=== PATIENT | female | born 1975 | race African-American/Black ===

== ENCOUNTER 2017-03-15 00:41 | Emergency (ER) | payer MEDICAID ==
[~2017-03-15] VITALS: Ht 152.4 cm; Wt 97.0 kg
[2017-03-15 01:45] VITALS: BP 125/75
== END 2017-03-15 03:00 | disposition left against medical advice (07) ==
LOC: ER 00:44
DX: Z53.21 Procedure and treatment not carried out due to patient leaving prior to being seen by health care provider (principal); R00.0 Tachycardia, unspecified; J45.909 Unspecified asthma, uncomplicated; I50.9 Heart failure, unspecified; Z98.84 Bariatric surgery status
CPT/HCPCS: Z7610 ×3

== ENCOUNTER 2017-06-22 15:56 | Inpatient (IN) | payer MEDICAID ==
[~2017-06-22] VITALS: Ht 154.9 cm; Wt 78.9 kg
[2017-06-22] MEDS ORDERED: SODIUM CHLORIDE 0.9% 1,000 ML IV ONE (18:57)
[2017-06-22 19:19] LABS: BASOPHILS % 1.4 % (0.0-2.0); EOSINOPHILS % 0.3 % (0.0-5.0); HEMATOCRIT. 34.4 % (36.0-48.0); HEMOGLOBIN. 11.4 g/dL (12.0-16.0); LYMPHOCYTES % 24.1 % (20.0-50.0); MEAN CORPUSCULAR HEMOGLOBIN 25.4 pg (28.0-32.0); MEAN CORPUSCULAR VOLUME 76.6 fL (81.0-99.0); MEAN PLATELET VOLUME 8.7 fl (7.4-10.4); MONOCYTES % 13.2 % (2.0-8.0); PLATELET 146 x1000/uL (130-400); RED BLOOD CELL COUNT 4.49 mill/uL (4.2-5.4); RED CELL DISTRIBUTION WIDTH 19.5 % (11.6-14.6)
[2017-06-22 19:23] LABS: INR 1.2; PROTHROMBIN TIME 12.5 sec (9.4-11.6)
[2017-06-22 19:32] LABS: CHLORIDE 58 mEq/L (98-107)
[2017-06-22] MEDS ORDERED: POTASSIUM CHLORIDE 20MEQ TABLET SR PO ONE (19:45)
[2017-06-22] MEDS ORDERED: POTASSIUM CHLORIDE INJ 40 MEQ in DEXT 5% WATER 500 ML IV ONE (19:45)
[2017-06-22 19:48] LABS: CARBON DIOXIDE 50 mEq/L (21-32)
[2017-06-22] MEDS ORDERED: DOCU-138 PO (22:58)
[2017-06-22] MEDS ORDERED: FERR325T6 PO (22:58)
[2017-06-22] MEDS ORDERED: PANT40TA4 PO (22:58)
[2017-06-22] MEDS ORDERED: POTA10TA11 PO (22:58)
[2017-06-22] MEDS ORDERED: METO10TA94 PO (22:58)
[2017-06-22] MEDS ORDERED: FURO-151 PO (22:58)
[2017-06-22 23:00] VITALS: BP 113/74
[2017-06-22] MEDS ORDERED: MAGNESIUM/ALUMINUM HYDROXIDE/SIMETHICONE 30ML UDC PO PRN (23:00)
[2017-06-22] MEDS ORDERED: IPRATROPIUM/ALBUTEROL 0.5-3(2.5)MG/3ML NEB INH PRN (23:00)
[2017-06-22] MEDS ORDERED: ONDANSETRON HCL 4MG/2ML VIAL IV PRN (23:00)
[2017-06-22] MEDS ORDERED: ACETAMINOPHEN 325MG TABLET PO PRN (23:00)
[2017-06-22] MEDS ORDERED: CLONIDINE 0.1MG TABLET PO PRN (23:00)
[2017-06-22 23:50] VITALS: BP 103/72
[2017-06-23] VITALS (12 sets, daily range): BP systolic 76–103; BP diastolic 37–67
[2017-06-23] MEDS ORDERED: MAGNESIUM 2 G PREMIX 50 ML IV SCH (01:00)
[2017-06-23] MEDS: SODIUM CHLORIDE 0.9% 1,000 ML IV SCH ×2 (01:25→14:43)
[2017-06-23] MEDS: ZOLPIDEM TARTRATE 5MG TABLET PO PRN (01:33)
[2017-06-23] MEDS ORDERED: PNEUMOCOCCAL 23-VAL P-SAC VAC 0.5 ML IM ONE (06:00)
[2017-06-23 06:38] LABS: BASOPHILS % 0.5 % (0.0-2.0); EOSINOPHILS % 0.6 % (0.0-5.0); HEMATOCRIT. 29.1 % (36.0-48.0); HEMOGLOBIN. 9.8 g/dL (12.0-16.0); LYMPHOCYTES % 30.8 % (20.0-50.0); MEAN CORPUSCULAR HEMOGLOBIN 25.8 pg (28.0-32.0); MEAN CORPUSCULAR VOLUME 76.7 fL (81.0-99.0); MEAN PLATELET VOLUME 9.2 fl (7.4-10.4); MONOCYTES % 14.2 % (2.0-8.0); NEUTROPHILS % 53.9 % (40.0-76.0); PLATELET 132 x1000/uL (130-400); RED CELL DISTRIBUTION WIDTH 19.7 % (11.6-14.6)
[2017-06-23 08:12] LABS: CHLORIDE 65 mEq/L (98-107); CREATINE KINASE 69 IU/L (26-192); CREATINE KINASE MB FRACTION < 0.5 ng/mL (0.5-3.6); HDL CHOLESTEROL 54 mg/dL (40-59); LDL CHOLESTEROL 30 mg/dL (5-100); TROPONIN I < 0.02 ng/mL (0.00-0.04)
[2017-06-23 08:35] LABS: CARBON DIOXIDE 46 mEq/L (21-32)
[2017-06-23] MEDS: FOLIC ACID 1MG TABLET PO SCH (08:43)
[2017-06-23] MEDS: MULTIVITAMINS,THER W-MINERALS TABLET PO SCH (08:43)
[2017-06-23] MEDS: THIAMINE HCL 100MG TABLET PO SCH (08:44)
[2017-06-23] MEDS ORDERED: POTASSIUM CHLORIDE 20MEQ TABLET SR PO NR ×3 (09:00→18:30)
[2017-06-23] MEDS ORDERED: SPIRONOLACTONE 25MG TABLET PO SCH (10:15)
[2017-06-23] MEDS ORDERED: POTASSIUM CHLORIDE INJ 40 MEQ in DEXT 5% WATER 250 ML IV NR (11:00)
[2017-06-23 15:25] LABS: CREATINE KINASE 68 IU/L (26-192); CREATINE KINASE MB FRACTION < 0.5 ng/mL (0.5-3.6); TROPONIN I < 0.02 ng/mL (0.00-0.04)
[2017-06-23 15:38] LABS: T4 FREE 1.7 ng/dL (0.76-1.46)
[2017-06-23 16:54] LABS: AMMONIA 43 uMol/L (<32)
[2017-06-23 17:14] LABS: BG BASE EXCESS 19.6 mmol/L (-2.0-2.0); BG CARBOXYHEMOGLOBIN 1.2 % (0.5-1.5); BG FRACTION INSPIRED OXYGEN 21; BG HCO3 ACT 43.6 mmol/L (22.0-26.0); BG METHEMOGLOBIN 0.2 % (0.0-1.5); BG OXYGEN SATURATION 91.9 % (92.0-98.5); BG OXYHEMOGLOBIN 90.6 % (94.0-97.0); BG PCO2 46.7 mmHg (35.0-45.0); BG PH 7.588 (7.350-7.450); BG PO2 64.3 mmHg (75.0-100.0); BG SAMPLE SITE RIGHT BRACHIAL; BG VENT MODE ROOM AIR
[2017-06-23 17:50] LABS: CHLORIDE 73 mEq/L (98-107)
[2017-06-23] MEDS ORDERED: POTASSIUM CHLORIDE INJ 40 MEQ in SODIUM CHLORIDE 0.9% 1,000 ML IV SCH (18:00)
[2017-06-23 18:03] LABS: CARBON DIOXIDE 43 mEq/L (21-32)
[2017-06-23] MEDS: SODIUM CHL 0.9% + KCL 20MEQ/L 1,000 ML IV SCH (20:30)
[2017-06-23] MEDS ORDERED: POTASSIUM CHLORIDE 20MEQ TABLET SR PO SCH (21:00)
[2017-06-24] VITALS (12 sets, daily range): BP systolic 88–121; BP diastolic 55–79
[2017-06-24 00:40] LABS: CHLORIDE 78 mEq/L (98-107)
[2017-06-24 00:47] LABS: VITAMIN B12 SERUM 591 pg/mL (211-911)
[2017-06-24 00:58] LABS: FOLIC ACID (FOLATE) SERUM > 20.00 ng/mL (>5.38)
[2017-06-24 01:02] LABS: CARBON DIOXIDE 41 mEq/L (21-32)
[2017-06-24] MEDS ORDERED: POTASSIUM CHLORIDE 20MEQ TABLET SR PO SCH (02:08)
[2017-06-24] MEDS: ZOLPIDEM TARTRATE 5MG TABLET PO PRN (02:21)
[2017-06-24] MEDS: SODIUM CHL 0.9% + KCL 20MEQ/L 1,000 ML IV SCH ×2 (04:51→13:58)
[2017-06-24 06:16] LABS: BASOPHILS % 0.6 % (0.0-2.0); EOSINOPHILS % 0.9 % (0.0-5.0); HEMOGLOBIN. 9.2 g/dL (12.0-16.0); LYMPHOCYTES % 36.2 % (20.0-50.0); MEAN CORPUSCULAR HEMOGLOBIN 25.5 pg (28.0-32.0); MEAN CORPUSCULAR VOLUME 77.6 fL (81.0-99.0); MEAN PLATELET VOLUME 8.8 fl (7.4-10.4); MONOCYTES % 14.1 % (2.0-8.0); NEUTROPHILS % 48.2 % (40.0-76.0); PLATELET 139 x1000/uL (130-400); RED BLOOD CELL COUNT 3.61 mill/uL (4.2-5.4); RED CELL DISTRIBUTION WIDTH 19.9 % (11.6-14.6)
[2017-06-24 07:12] LABS: CHLORIDE 83 mEq/L (98-107); PHOSPHORUS 2.2 mg/dL (2.5-4.9)
[2017-06-24 07:44] LABS: CARBON DIOXIDE 40 mEq/L (21-32)
[2017-06-24] MEDS ORDERED: POTASSIUM CHLORIDE 20MEQ TABLET SR PO NR ×2 (08:45→14:00)
[2017-06-24] MEDS: FOLIC ACID 1MG TABLET PO SCH (08:47)
[2017-06-24] MEDS: THIAMINE HCL 100MG TABLET PO SCH (08:47)
[2017-06-24] MEDS: MULTIVITAMINS,THER W-MINERALS TABLET PO SCH (08:47)
[2017-06-24 09:26] LABS: GLUCOSE URINE NEGATIVE (NEGATIVE); KETONES URINE NEGATIVE (NEGATIVE); LEUKOCYTE ESTERASE URINE NEGATIVE (NEGATIVE); NITRITE URINE NEGATIVE (NEGATIVE); OCCULT BLOOD URINE 3+ (NEGATIVE); PH URINE 7.5 (4.5-8.0); PROTEIN URINE NEGATIVE (NEGATIVE); SPECIFIC GRAVITY URINE 1.006 (1.005-1.030)
[2017-06-24 09:57] LABS: CLARITY URINE SL HAZY (CLEAR); COLOR URINE YELLOW (YELLOW)
[2017-06-24 10:18] LABS: *AMPHETAMINES SCREEN URINE NEGATIVE (NEGATIVE); *BARBITURATES SCREEN URINE NEGATIVE (NEGATIVE); *BENZODIAZEPINES SCREEN URINE NEGATIVE (NEGATIVE); *COCAINE SCREEN URINE NEGATIVE (NEGATIVE); CANNABINOID URINE SCREEN NEGATIVE (NEGATIVE); METHADONE URINE SCREEN NEGATIVE (NEGATIVE); OPIATES URINE SCREEN NEGATIVE (NEGATIVE); PHENCYCLIDINE URINE SCREEN NEGATIVE (NEGATIVE)
[2017-06-24 10:30] LABS: CHLORIDE URINE RANDOM < 10 mEq/L; SODIUM URINE RANDOM 19 mEq/L
[2017-06-24] MEDS ORDERED: POTASSIUM PHOS,M-BASIC-D-BASIC 15 MMOL in DEXT 5% WATER 245 ML IV NR (11:00)
[2017-06-24 13:13] LABS: CARBON DIOXIDE 39 mEq/L (21-32); CHLORIDE 87 mEq/L (98-107)
[2017-06-24 18:18] LABS: CARBON DIOXIDE 35 mEq/L (21-32); CHLORIDE 92 mEq/L (98-107)
[2017-06-24] MEDS: SODIUM CHLORIDE 0.9% 1,000 ML IV SCH (21:45)
[2017-06-25] VITALS (9 sets, daily range): BP systolic 85–111; BP diastolic 44–74
[2017-06-25] MEDS: ZOLPIDEM TARTRATE 5MG TABLET PO PRN (01:14)
[2017-06-25 07:54] LABS: CARBON DIOXIDE 33 mEq/L (21-32); CHLORIDE 97 mEq/L (98-107)
[2017-06-25] MEDS: THIAMINE HCL 100MG TABLET PO SCH (08:53)
[2017-06-25] MEDS: FOLIC ACID 1MG TABLET PO SCH (08:53)
[2017-06-25] MEDS: MULTIVITAMINS,THER W-MINERALS TABLET PO SCH (08:53)
[2017-06-25] MEDS: SODIUM CHLORIDE 0.9% 1,000 ML IV SCH (08:53)
[2017-06-25] MEDS ORDERED: POTASSIUM CHLORIDE 20MEQ TABLET SR PO NR ×3 (09:45→10:04)
[2017-06-25] MEDS ORDERED: FOLI-43 PO (11:40)
[2017-06-25] MEDS ORDERED: THIA100T72 PO (11:40)
== END 2017-06-25 13:52 | disposition home or self-care (01) | DRG 52 ==
LOC: ER 17:00 → 3WST 20:14 → ENRESERV 20:30
PROVIDERS: ADMIT Internal Medicine; ATTEND Internal Medicine
DX: G93.40 Encephalopathy, unspecified (principal); E43 Unspecified severe protein-calorie malnutrition; E87.3 Alkalosis; D61.818 Other pancytopenia; I95.9 Hypotension, unspecified; I11.0 Hypertensive heart disease with heart failure; I50.9 Heart failure, unspecified; E87.1 Hypo-osmolality and hyponatremia; E87.8 Other disorders of electrolyte and fluid balance, not elsewhere classified; R55 Syncope and collapse; T50.2X5A Adverse effect of carbonic-anhydrase inhibitors, benzothiadiazides and other diuretics, initial encounter; T50.1X5A Adverse effect of loop [high-ceiling] diuretics, initial encounter; E86.1 Hypovolemia; E83.42 Hypomagnesemia; K74.60 Unspecified cirrhosis of liver; E87.6 Hypokalemia; J45.909 Unspecified asthma, uncomplicated; W18.39XA Other fall on same level, initial encounter; Y93.89 Activity, other specified; Y92.89 Other specified places as the place of occurrence of the external cause; Y99.8 Other external cause status; Z82.49 Family history of ischemic heart disease and other diseases of the circulatory system; Z98.84 Bariatric surgery status; Z72.89 Other problems related to lifestyle; Z68.32 Body mass index [BMI] 32.0-32.9, adult
CPT/HCPCS: 36415; 36600; 70551; 71010; 71020; 80048; 80053; 80061; 80305; 81001; 82088; 82140; 82340; 82375; 82436; 82533; 82550; 82553; 82570; 82607; 82746; 82805; 83036; 83735; 83930; 83935; 84100; 84133; 84244; 84300; 84439; 84443; 84481; 84484; 85025; 85610; 87040; 87086; 90732; 93005; 93306; 93970; 96374; 99285; G0482; J3475; J3480; J3490; J7030; J7060

== ENCOUNTER 2018-03-06 08:56 | Inpatient (IN) | payer MEDICAID ==
[~2018-03-06] VITALS: Ht 152.4 cm; Wt 101.2 kg
[~2018-03-06 08:56] MED LIST: DOCU-138 PO; FERR325T6 PO; FOLI-43 PO; PANT40TA4 PO; POTA10TA11 PO; THIA100T72 PO
[2018-03-06 10:37] LABS: INR 2.1; PARTIAL THROMBOPLASTIN TIME 48.9 sec (23.4-31.0); PROTHROMBIN TIME 22.1 sec (9.4-11.6)
[2018-03-06 10:42] LABS: BASOPHILS % 1.2 % (0.0-2.0); EOSINOPHILS % 0.3 % (0.0-5.0); HEMATOCRIT. 25.8 % (36.0-48.0); HEMOGLOBIN. 8.6 g/dL (12.0-16.0); LYMPHOCYTES % 15.1 % (20.0-50.0); MEAN CORPUSCULAR HEMOGLOBIN 30.6 pg (28.0-32.0); MEAN CORPUSCULAR VOLUME 92.6 fL (81.0-99.0); MONOCYTES % 12.7 % (2.0-8.0); NEUTROPHILS % 70.7 % (40.0-76.0); RED BLOOD CELL COUNT 2.79 mill/uL (4.2-5.4); RED CELL DISTRIBUTION WIDTH 20.2 % (11.6-14.6)
[2018-03-06 10:53] LABS: CHLORIDE 98 mEq/L (98-107)
[2018-03-06 10:59] LABS: AMMONIA 114 uMol/L (<32)
[2018-03-06] MEDS ORDERED: KCL 20MEQ/100ML PREMIX 100 ML IV SCH ×2 (11:30→13:30)
[2018-03-06 12:35] LABS: CLARITY URINE CLEAR (CLEAR); COLOR URINE DARK YELLOW (YELLOW); KETONES URINE NEGATIVE (NEGATIVE); LEUKOCYTE ESTERASE URINE 1+ (NEGATIVE); NITRITE URINE POSITIVE (NEGATIVE); OCCULT BLOOD URINE NEGATIVE (NEGATIVE); PH URINE 6.5 (4.5-8.0); PROTEIN URINE NEGATIVE (NEGATIVE); SPECIFIC GRAVITY URINE 1.015 (1.005-1.030)
[2018-03-06] MEDS ORDERED: LACTULOSE 20G/30ML UDC PO NR (14:37)
[2018-03-06 17:30] VITALS: BP 104/56
[2018-03-06 17:35] VITALS: BP 104/56
[2018-03-06 17:38] VITALS: BP 104/56
[2018-03-06] MEDS ORDERED: IBUPROFEN 400MG TABLET PO PRN (19:30)
[2018-03-06 20:00] VITALS: BP 101/64
[2018-03-06] MEDS ORDERED: PNEUMOCOCCAL 23-VAL P-SAC VAC 0.5 ML IM ONE (20:00)
[2018-03-06 21:21] LABS: AMMONIA 159 uMol/L (<32)
[2018-03-06] MEDS ORDERED: CEFTRIAXONE 1 G PREMIX 50 ML IV SCH (22:00)
[2018-03-06] MEDS ORDERED: IPRATROPIUM/ALBUTEROL 0.5-3(2.5)MG/3ML NEB INH PRN (22:00)
[2018-03-06] MEDS ORDERED: ONDANSETRON HCL 4MG/2ML VIAL IV PRN (22:00)
[2018-03-06] MEDS ORDERED: MAGNESIUM/ALUMINUM HYDROXIDE/SIMETHICONE 30ML UDC PO PRN ×2 (22:00→22:30)
[2018-03-06] MEDS ORDERED: DOCUSATE SODIUM 100MG CAPSULE PO PRN (22:00)
[2018-03-06] MEDS ORDERED: LORAZEPAM 2MG/ML CPJ IV PRN (22:00)
[2018-03-06] MEDS ORDERED: CLONIDINE 0.1MG TABLET PO PRN (22:00)
[2018-03-06] MEDS ORDERED: POTASSIUM CHLORIDE 20MEQ TABLET SR PO NR (23:00)
[2018-03-06] MEDS: CEFTRIAXONE 1 G PREMIX 50 ML IV SCH (23:29)
[2018-03-06] MEDS: LACTULOSE 20G/30ML UDC PO SCH (23:29)
[2018-03-06] MEDS: SPIRONOLACTONE 100MG TABLET PO SCH (23:31)
[2018-03-07] VITALS: BP 106/67
[2018-03-07] MEDS ORDERED: POTASSIUM CHLORIDE INJ 40 MEQ in DEXT 5% WATER 250 ML IV NR ×2
[2018-03-07 00:13] LABS: CREATINE KINASE 44 IU/L (26-192)
[2018-03-07] MEDS ORDERED: PHYTONADIONE 10MG/ML AMP PO NR (01:00)
[2018-03-07] MEDS ORDERED: ALLO300T2 MT (02:41)
[2018-03-07] MEDS ORDERED: FURO80TA87 MT (02:42)
[2018-03-07 04:00] VITALS: BP 96/61
[2018-03-07] MEDS: LACTULOSE 20G/30ML UDC PO SCH ×3 (05:47→21:57)
[2018-03-07 06:11] LABS: BASOPHILS % 1.1 % (0.0-2.0); EOSINOPHILS % 0.4 % (0.0-5.0); HEMATOCRIT. 23.6 % (36.0-48.0); HEMOGLOBIN. 7.7 g/dL (12.0-16.0); LYMPHOCYTES % 18.3 % (20.0-50.0); MEAN CORPUSCULAR HEMOGLOBIN 30.5 pg (28.0-32.0); MEAN CORPUSCULAR VOLUME 93.6 fL (81.0-99.0); MONOCYTES % 8.9 % (2.0-8.0); NEUTROPHILS % 71.3 % (40.0-76.0); RED BLOOD CELL COUNT 2.52 mill/uL (4.2-5.4); RED CELL DISTRIBUTION WIDTH 20.6 % (11.6-14.6)
[2018-03-07 06:28] LABS: AMMONIA 104 uMol/L (<32)
[2018-03-07 07:20] LABS: HEPATITIS B SURFACE ANTIGEN NEGATIVE
[2018-03-07 07:47] LABS: HEPATITIS B CORE AB IGM NEGATIVE
[2018-03-07 07:49] LABS: HEPATITIS A AB IGM NEGATIVE (NEGATIVE)
[2018-03-07 08:00] VITALS: BP 101/56
[2018-03-07 08:36] LABS: CHLORIDE 99 mEq/L (98-107)
[2018-03-07 08:46] LABS: CREATINE KINASE 39 IU/L (26-192); LDL CHOLESTEROL 19 mg/dL (5-100)
[2018-03-07 08:48] LABS: MEAN PLATELET VOLUME 9.6 fl (7.4-10.4)
[2018-03-07 08:49] LABS: PLATELET 54 x1000/uL (130-400)
[2018-03-07 08:54] LABS: CREATINE KINASE MB FRACTION 0.7 ng/mL (0.5-3.6)
[2018-03-07] MEDS: FOLIC ACID 1MG TABLET PO SCH (09:00)
[2018-03-07 09:41] LABS: HDL CHOLESTEROL 12 mg/dL (40-59)
[2018-03-07 10:07] LABS: PHOSPHORUS 2.6 mg/dL (2.5-4.9)
[2018-03-07] MEDS: SPIRONOLACTONE 100MG TABLET PO SCH (10:08)
[2018-03-07] MEDS: THIAMINE HCL 100MG TABLET PO SCH (10:09)
[2018-03-07] MEDS: ALLOPURINOL 300 MG TABLET PO SCH (10:09)
[2018-03-07] MEDS: POTASSIUM CHLORIDE 20MEQ TABLET SR PO SCH ×2 (10:10→19:59)
[2018-03-07] MEDS: DOCUSATE SODIUM 100MG CAPSULE PO SCH ×2 (10:10→19:59)
[2018-03-07] MEDS: MULTIVITAMINS,THER W-MINERALS TABLET PO SCH (10:10)
[2018-03-07 12:00] VITALS: BP 103/46
[2018-03-07 16:00] VITALS: BP 97/58
[2018-03-07 18:33] LABS: TOTAL IRON BINDING CAPACITY 105 ug/dL (250-450)
[2018-03-07 19:14] LABS: VITAMIN B12 SERUM >2000 pg/mL pg/mL (211-911)
[2018-03-07 20:00] VITALS: BP 117/77
[2018-03-07 21:53] LABS: *AMPHETAMINES SCREEN URINE NEGATIVE (NEGATIVE); *BARBITURATES SCREEN URINE NEGATIVE (NEGATIVE); *BENZODIAZEPINES SCREEN URINE NEGATIVE (NEGATIVE)
[2018-03-07 21:54] LABS: *COCAINE SCREEN URINE NEGATIVE (NEGATIVE); CANNABINOID URINE SCREEN NEGATIVE (NEGATIVE); METHADONE URINE SCREEN NEGATIVE (NEGATIVE); OPIATES URINE SCREEN NEGATIVE (NEGATIVE); PHENCYCLIDINE URINE SCREEN NEGATIVE (NEGATIVE)
[2018-03-07] MEDS: OMEPRAZOLE 20MG CAPSULE EXTENDED RELEASE PO SCH (21:57)
[2018-03-08] VITALS: BP 104/67
[2018-03-08] MEDS: ZOLPIDEM TARTRATE 5MG TABLET PO PRN ×2 (00:38→21:38)
[2018-03-08] MEDS: CEFTRIAXONE 1 G PREMIX 50 ML IV SCH (00:38)
[2018-03-08 04:00] VITALS: BP 96/69
[2018-03-08] MEDS: OMEPRAZOLE 20MG CAPSULE EXTENDED RELEASE PO SCH ×2 (06:23→21:38)
[2018-03-08] MEDS: LACTULOSE 20G/30ML UDC PO SCH ×3 (06:23→21:38)
[2018-03-08 07:18] LABS: BASOPHILS % 1.3 % (0.0-2.0); EOSINOPHILS % 0.6 % (0.0-5.0); HEMATOCRIT. 26.4 % (36.0-48.0); HEMOGLOBIN. 8.5 g/dL (12.0-16.0); LYMPHOCYTES % 17.3 % (20.0-50.0); MEAN CORPUSCULAR HEMOGLOBIN 30.4 pg (28.0-32.0); MEAN CORPUSCULAR VOLUME 94.4 fL (81.0-99.0); MONOCYTES % 8.8 % (2.0-8.0); RED CELL DISTRIBUTION WIDTH 20.8 % (11.6-14.6)
[2018-03-08 08:00] VITALS: BP 97/70
[2018-03-08] MEDS: ALLOPURINOL 300 MG TABLET PO SCH (09:43)
[2018-03-08] MEDS: DOCUSATE SODIUM 100MG CAPSULE PO SCH ×2 (09:43→17:26)
[2018-03-08] MEDS: SPIRONOLACTONE 100MG TABLET PO SCH (09:44)
[2018-03-08] MEDS: MULTIVITAMINS,THER W-MINERALS TABLET PO SCH (09:45)
[2018-03-08] MEDS: THIAMINE HCL 100MG TABLET PO SCH (09:45)
[2018-03-08] MEDS: POTASSIUM CHLORIDE 20MEQ TABLET SR PO SCH ×2 (09:45→17:26)
[2018-03-08] MEDS: FOLIC ACID 1MG TABLET PO SCH (09:45)
[2018-03-08 10:19] LABS: CHLORIDE 100 mEq/L (98-107)
[2018-03-08] MEDS ORDERED: POTASSIUM CHLORIDE 20MEQ TABLET SR PO NR (11:15)
[2018-03-08 12:00] VITALS: BP 110/48
[2018-03-08 15:56] LABS: AMMONIA 103 uMol/L (<32)
[2018-03-08 16:00] VITALS: BP 96/60
[2018-03-08] MEDS: ACETAMINOPHEN 325MG TABLET PO PRN ×2 (17:34→21:43)
[2018-03-08 20:00] VITALS: BP 101/78
[2018-03-08] MEDS: RIFAXIMIN 550 MG TABLET PO SCH (21:38)
[2018-03-09] VITALS: BP 112/69
[2018-03-09] MEDS: CEFTRIAXONE 1 G PREMIX 50 ML IV SCH ×2 (02:53→23:56)
[2018-03-09 04:00] VITALS: BP 114/62
[2018-03-09] MEDS: OMEPRAZOLE 20MG CAPSULE EXTENDED RELEASE PO SCH ×2 (06:03→21:02)
[2018-03-09] MEDS: LACTULOSE 20G/30ML UDC PO SCH ×4 (06:03→23:56)
[2018-03-09 06:36] LABS: AMMONIA 122 uMol/L (<32)
[2018-03-09 08:00] VITALS: BP 95/64
[2018-03-09] MEDS: ACETAMINOPHEN 325MG TABLET PO PRN (08:25)
[2018-03-09] MEDS: DOCUSATE SODIUM 100MG CAPSULE PO SCH ×2 (08:25→16:29)
[2018-03-09] MEDS: THIAMINE HCL 100MG TABLET PO SCH (08:25)
[2018-03-09] MEDS: ALLOPURINOL 300 MG TABLET PO SCH (08:25)
[2018-03-09] MEDS: POTASSIUM CHLORIDE 20MEQ TABLET SR PO SCH ×2 (08:25→16:29)
[2018-03-09] MEDS: FOLIC ACID 1MG TABLET PO SCH (08:25)
[2018-03-09] MEDS: SPIRONOLACTONE 100MG TABLET PO SCH (08:25)
[2018-03-09] MEDS: MULTIVITAMINS,THER W-MINERALS TABLET PO SCH (08:25)
[2018-03-09] MEDS: RIFAXIMIN 550 MG TABLET PO SCH ×2 (08:26→21:03)
[2018-03-09 09:53] LABS: BASOPHILS % 0.9 % (0.0-2.0); EOSINOPHILS % 0.4 % (0.0-5.0); HEMATOCRIT. 22.6 % (36.0-48.0); HEMOGLOBIN. 7.4 g/dL (12.0-16.0); LYMPHOCYTES % 16.8 % (20.0-50.0); MEAN CORPUSCULAR HEMOGLOBIN 30.8 pg (28.0-32.0); MEAN CORPUSCULAR VOLUME 93.9 fL (81.0-99.0); MONOCYTES % 9.9 % (2.0-8.0); RED BLOOD CELL COUNT 2.41 mill/uL (4.2-5.4); RED CELL DISTRIBUTION WIDTH 20.2 % (11.6-14.6)
[2018-03-09 09:57] LABS: CHLORIDE 99 mEq/L (98-107)
[2018-03-09 11:45] LABS: MEAN PLATELET VOLUME 9.4 fl (7.4-10.4); PLATELET 61 x1000/uL (130-400)
[2018-03-09 12:00] VITALS: BP 89/43
[2018-03-09 16:00] VITALS: BP 102/63
[2018-03-09 16:33] LABS: HEMATOCRIT 25.5 % (36.0-48.0); HEMOGLOBIN 8.1 g/dL (12.0-16.0)
[2018-03-09 17:14] LABS: HIV SCREEN 4G Non Reactive (Non Reactive)
[2018-03-09 17:59] LABS: T4 FREE 1.54 ng/dL (0.76-1.46)
[2018-03-09 20:00] VITALS: BP 104/70
[2018-03-09] MEDS: ZOLPIDEM TARTRATE 5MG TABLET PO PRN (21:02)
[2018-03-10] VITALS: BP 107/74
[2018-03-10 04:01] VITALS: BP 84/48
[2018-03-10] MEDS: LACTULOSE 20G/30ML UDC PO SCH ×3 (05:57→17:50)
[2018-03-10] MEDS: OMEPRAZOLE 20MG CAPSULE EXTENDED RELEASE PO SCH ×2 (05:57→21:12)
[2018-03-10 06:28] LABS: BASOPHILS % 0.5 % (0.0-2.0); EOSINOPHILS % 0.1 % (0.0-5.0); HEMATOCRIT. 22.9 % (36.0-48.0); HEMOGLOBIN. 7.7 g/dL (12.0-16.0); LYMPHOCYTES % 20.3 % (20.0-50.0); MEAN CORPUSCULAR HEMOGLOBIN 31.4 pg (28.0-32.0); MEAN CORPUSCULAR VOLUME 93.3 fL (81.0-99.0); MONOCYTES % 11.6 % (2.0-8.0); NEUTROPHILS % 67.5 % (40.0-76.0); RED BLOOD CELL COUNT 2.46 mill/uL (4.2-5.4); RED CELL DISTRIBUTION WIDTH 19.7 % (11.6-14.6)
[2018-03-10 06:35] LABS: AMMONIA 78 uMol/L (<32)
[2018-03-10 06:48] LABS: CHLORIDE 100 mEq/L (98-107)
[2018-03-10 07:02] LABS: PHOSPHORUS 1.9 mg/dL (2.5-4.9)
[2018-03-10 08:00] VITALS: BP 95/61
[2018-03-10] MEDS: THIAMINE HCL 100MG TABLET PO SCH (08:36)
[2018-03-10] MEDS: ACETAMINOPHEN 325MG TABLET PO PRN (08:36)
[2018-03-10] MEDS: RIFAXIMIN 550 MG TABLET PO SCH ×2 (08:36→21:12)
[2018-03-10] MEDS: POTASSIUM CHLORIDE 20MEQ TABLET SR PO SCH (08:36)
[2018-03-10] MEDS: SPIRONOLACTONE 100MG TABLET PO SCH (08:37)
[2018-03-10] MEDS: ALLOPURINOL 300 MG TABLET PO SCH (08:37)
[2018-03-10] MEDS: MULTIVITAMINS,THER W-MINERALS TABLET PO SCH (08:37)
[2018-03-10] MEDS: FOLIC ACID 1MG TABLET PO SCH (08:37)
[2018-03-10] MEDS: DOCUSATE SODIUM 100MG CAPSULE PO SCH ×2 (08:37→17:50)
[2018-03-10] MEDS ORDERED: SODIUM PHOS,M-BASIC-D-BASIC 20 MM in DEXT 5% WATER 243.3333 ML IV SCH (10:00)
[2018-03-10] MEDS: HYDROCODONE/ACETAMINOPHEN 5/325MG TABLET PO PRN (14:42)
[2018-03-10 16:00] VITALS: BP 91/51
[2018-03-10 20:00] VITALS: BP 107/60
[2018-03-10] MEDS: ZOLPIDEM TARTRATE 5MG TABLET PO PRN (21:12)
[2018-03-11] VITALS: BP 93/67
[2018-03-11] MEDS: LACTULOSE 20G/30ML UDC PO SCH ×3 (00:32→14:13)
[2018-03-11] MEDS: CEFTRIAXONE 1 G PREMIX 50 ML IV SCH (00:32)
[2018-03-11 05:00] VITALS: BP 90/56
[2018-03-11] MEDS: OMEPRAZOLE 20MG CAPSULE EXTENDED RELEASE PO SCH (06:03)
[2018-03-11] MEDS: ACETAMINOPHEN 325MG TABLET PO PRN (06:05)
[2018-03-11 06:40] LABS: CHLORIDE 102 mEq/L (98-107)
[2018-03-11 06:54] LABS: BASOPHILS % 0.7 % (0.0-2.0); EOSINOPHILS % 0.1 % (0.0-5.0); HEMOGLOBIN. 7.3 g/dL (12.0-16.0); LYMPHOCYTES % 19.8 % (20.0-50.0); MEAN CORPUSCULAR HEMOGLOBIN 31.5 pg (28.0-32.0); MEAN CORPUSCULAR VOLUME 94.2 fL (81.0-99.0); MONOCYTES % 13.4 % (2.0-8.0); RED BLOOD CELL COUNT 2.33 mill/uL (4.2-5.4); RED CELL DISTRIBUTION WIDTH 20.2 % (11.6-14.6)
[2018-03-11] MEDS: SPIRONOLACTONE 100MG TABLET PO SCH (08:16)
[2018-03-11] MEDS: FOLIC ACID 1MG TABLET PO SCH (08:16)
[2018-03-11] MEDS: MULTIVITAMINS,THER W-MINERALS TABLET PO SCH (08:16)
[2018-03-11] MEDS: THIAMINE HCL 100MG TABLET PO SCH (08:16)
[2018-03-11] MEDS: RIFAXIMIN 550 MG TABLET PO SCH (08:16)
[2018-03-11] MEDS: ALLOPURINOL 300 MG TABLET PO SCH (08:16)
[2018-03-11] MEDS: DOCUSATE SODIUM 100MG CAPSULE PO SCH ×2 (08:17→17:12)
[2018-03-11] MEDS ORDERED: POTASSIUM CHLORIDE 20MEQ TABLET SR PO SCH (09:00)
[2018-03-11] MEDS: HYDROCODONE/ACETAMINOPHEN 5/325MG TABLET PO PRN (14:13)
[2018-03-11] MEDS ORDERED: POTASSIUM CHLORIDE 20MEQ/PACKET PO SCH (15:15)
[2018-03-11 16:00] VITALS: BP 105/74
[2018-03-11 19:02] VITALS: BP 108/73
[2018-03-11] MEDS ORDERED: SULFAMETHOXAZOLE/TRIMETHOPRIM 800/160MG TABLET PO SCH (21:00)
[2018-03-11] MEDS ORDERED: FUROSEMIDE 40MG TABLET PO SCH (21:00)
== END 2018-03-11 21:34 | disposition home or self-care (01) | DRG 279 ==
LOC: ER 08:56 → 5WST 13:57 → ENRESERV 15:59
PROVIDERS: ADMIT Internal Medicine; ATTEND Internal Medicine
PROC: 4A00X4Z Measurement of Central Nervous Electrical Activity, External Approach (ICD-10-PCS; principal; 2018-03-11)
DX: K72.90 Hepatic failure, unspecified without coma (principal); E43 Unspecified severe protein-calorie malnutrition; G92 Toxic encephalopathy; I11.0 Hypertensive heart disease with heart failure; E87.8 Other disorders of electrolyte and fluid balance, not elsewhere classified; R65.10 Systemic inflammatory response syndrome (SIRS) of non-infectious origin without acute organ dysfunction; I95.9 Hypotension, unspecified; E72.20 Disorder of urea cycle metabolism, unspecified; I50.9 Heart failure, unspecified; E87.1 Hypo-osmolality and hyponatremia; K70.31 Alcoholic cirrhosis of liver with ascites; E87.6 Hypokalemia; R25.1 Tremor, unspecified; F10.10 Alcohol abuse, uncomplicated; D72.829 Elevated white blood cell count, unspecified; D64.9 Anemia, unspecified; N39.0 Urinary tract infection, site not specified; J45.909 Unspecified asthma, uncomplicated; K76.0 Fatty (change of) liver, not elsewhere classified; T50.2X5A Adverse effect of carbonic-anhydrase inhibitors, benzothiadiazides and other diuretics, initial encounter; Y92.89 Other specified places as the place of occurrence of the external cause; Z98.84 Bariatric surgery status; Z68.39 Body mass index [BMI] 39.0-39.9, adult; Z79.899 Other long term (current) drug therapy; Z68.41 Body mass index [BMI] 40.0-44.9, adult
CPT/HCPCS: 36415; 70450; 70551; 71045; 76705; 80048; 80053; 80061; 80076; 80305; 81003; 82105; 82140; 82270; 82550; 82553; 82607; 82728; 82746; 83036; 83540; 83550; 83690; 83735; 83880; 83930; 83935; 84100; 84132; 84133; 84439; 84443; 84481; 84484; 85014; 85018; 85025; 85610; 85730; 86705; 86709; 86803; 87040; 87086; 87186; 87340; 90732; 93005; 93306; 93970; 96360; 96361; 99291; J0696; J3430; J3480; J3490; J7060

== ENCOUNTER 2018-08-01 19:07 | Inpatient (IN) | payer MEDICAID ==
[~2018-08-01] VITALS: Ht 152.4 cm; Wt 97.1 kg
[~2018-08-01 19:07] MED LIST changes: +ALLO300T2 MT; -DOCU-138 PO; +FLUN8.9H INH; +FURO80TA87 MT; +LACT10SO PO; +MULT1TAB67 PO; +OMEG-59 MT; +POTA-79 PO; +SPIR100T5 PO
[2018-08-01] MEDS ORDERED: ONDANSETRON HCL 4MG/2ML INJ IV STA (21:41)
[2018-08-01] MEDS ORDERED: MORPHINE SULFATE 4 MG/ML CPJ (NOT FOR IM USE) IV STA (21:41)
[2018-08-01] MEDS ORDERED: SODIUM CHLORIDE 0.9% 1000ML BAG (SEPSIS BOLUS) IV ONE (21:45)
[2018-08-01 22:55] LABS: MEAN CORPUSCULAR HEMOGLOBIN 36.1 pg (28.0-32.0); MEAN PLATELET VOLUME 10.2 fl (7.4-10.4); RED CELL DISTRIBUTION WIDTH 24.2 % (11.6-14.6)
[2018-08-01 23:02] LABS: CHLORIDE 105 mEq/L (98-107)
[2018-08-01 23:06] LABS: HEMATOCRIT. 17.4 % (36.0-48.0); HEMOGLOBIN. 5.8 g/dL (12.0-16.0)
[2018-08-01 23:07] LABS: PLATELET 36 x1000/uL (130-400)
[2018-08-01 23:12] LABS: HCG SCREEN NEGATIVE
[2018-08-01 23:13] LABS: INR 2.4; PARTIAL THROMBOPLASTIN TIME 52.8 sec (23.4-31.0); PROTHROMBIN TIME 23.9 sec (9.1-11.1)
[2018-08-01] MEDS ORDERED: MORPHINE SULFATE 2 MG/ML CPJ (NOT FOR IM USE) IV STA (23:15)
[2018-08-01 23:22] LABS: CLARITY URINE CLOUDY (CLEAR); COLOR URINE DARK YELLOW (YELLOW); KETONES URINE TRACE (NEGATIVE); LEUKOCYTE ESTERASE URINE NEGATIVE (NEGATIVE); NITRITE URINE NEGATIVE (NEGATIVE); OCCULT BLOOD URINE 3+ (NEGATIVE); PH URINE 5.5 (4.5-8.0); PROTEIN URINE NEGATIVE (NEGATIVE); SPECIFIC GRAVITY URINE 1.018 (1.005-1.030)
[2018-08-01] MEDS ORDERED: MORPHINE SULFATE 2 MG/ML CPJ (NOT FOR IM USE) IV SCH (23:30)
[2018-08-01 23:42] LABS: NUCLEATED RED BLOOD CELLS 1 /100 WBC
[2018-08-01 23:43] LABS: PLATELET ESTIMATE MARKEDLY DECREASED
[2018-08-02] VITALS (8 sets, daily range): BP systolic 101–118; BP diastolic 48–72
[2018-08-02] MEDS ORDERED: LEVOFLOXACIN 750MG PREMIX 150 ML IV ONE (00:30)
[2018-08-02] MEDS ORDERED: METRONIDAZOLE 500 MG PREMIX 100 ML IV ONE (00:45)
[2018-08-02] MEDS: HYDROCODONE/ACETAMINOPHEN 5/325MG TABLET PO PRN ×2 (07:03→18:21)
[2018-08-02] MEDS ORDERED: LEVOFLOXACIN 750MG PREMIX 150 ML IV NR (10:45)
[2018-08-02] MEDS ORDERED: CEFTRIAXONE 1,000 MG in DEXTROSE 5% WATER 50 ML IV SCH (16:00)
[2018-08-02] MEDS: FUROSEMIDE 40MG/4ML VIAL IVP SCH (17:25)
[2018-08-02] MEDS: PANTOPRAZOLE SODIUM 40 MG/VIAL IV SCH (17:25)
[2018-08-02] MEDS: ONDANSETRON HCL 4MG/2ML INJ IV PRN (21:08)
[2018-08-02] MEDS: HYDROMORPHONE HCL/PF 2MG/ML CPJ IV PRN (21:09)
[2018-08-02] MEDS: SIMETHICONE 80MG TABLET CHEW PO PRN (22:09)
[2018-08-03] VITALS (30 sets, daily range): BP systolic 93–130; BP diastolic 39–95
[2018-08-03] MEDS: CEFTRIAXONE 1 G PREMIX 50 ML IV SCH (01:51)
[2018-08-03 06:54] LABS: CHLORIDE 105 mEq/L (98-107)
[2018-08-03 07:02] LABS: PARTIAL THROMBOPLASTIN TIME 35.5 sec (23.4-31.0); PROTHROMBIN TIME 19.5 sec (9.1-11.1)
[2018-08-03 07:08] LABS: TOTAL IRON BINDING CAPACITY 149 ug/dL (250-450)
[2018-08-03 07:27] LABS: FOLIC ACID (FOLATE) SERUM 19.7 ng/mL (>5.38)
[2018-08-03 07:55] LABS: BASOPHILS % 0.8 % (0.0-2.0); EOSINOPHILS % 0.2 % (0.0-5.0); LYMPHOCYTES % 16.6 % (20.0-50.0); MEAN CORPUSCULAR HEMOGLOBIN 35.1 pg (28.0-32.0); MEAN CORPUSCULAR VOLUME 102.7 fL (81.0-99.0); MEAN PLATELET VOLUME 9.8 fl (7.4-10.4); MONOCYTES % 12.6 % (2.0-8.0); NEUTROPHILS % 69.8 % (40.0-76.0); RED BLOOD CELL COUNT 1.81 mill/uL (4.2-5.4); RED CELL DISTRIBUTION WIDTH 24.6 % (11.6-14.6)
[2018-08-03] MEDS: FUROSEMIDE 40MG/4ML VIAL IVP SCH (09:02)
[2018-08-03] MEDS: PANTOPRAZOLE SODIUM 40 MG/VIAL IV SCH (09:02)
[2018-08-03 09:13] LABS: HEMATOCRIT. 18.6 % (36.0-48.0); HEMOGLOBIN. 6.4 g/dL (12.0-16.0)
[2018-08-03 13:11] LABS: PLATELET ESTIMATE MARKEDLY DECREASED
[2018-08-03 13:13] LABS: PLATELET 29 x1000/uL (130-400)
[2018-08-03] MEDS: SIMETHICONE 80MG TABLET CHEW PO PRN ×2 (14:37→21:02)
[2018-08-03] MEDS: HYDROMORPHONE HCL/PF 2MG/ML CPJ IV PRN (14:37)
[2018-08-03] MEDS ORDERED: LACTULOSE 20G/30ML UDC PO NR (14:45)
[2018-08-03 15:23] LABS: HEMATOCRIT 21.2 % (36.0-48.0); HEMOGLOBIN 7.3 g/dL (12.0-16.0)
[2018-08-03] MEDS: ONDANSETRON HCL 4MG/2ML INJ IV PRN (21:02)
[2018-08-04] VITALS (18 sets, daily range): BP systolic 90–123; BP diastolic 52–75
[2018-08-04 07:43] LABS: INR 2.3; PARTIAL THROMBOPLASTIN TIME 48.9 sec (23.4-31.0); PROTHROMBIN TIME 22.8 sec (9.1-11.1)
[2018-08-04] MEDS: FUROSEMIDE 40MG/4ML VIAL IVP SCH (08:08)
[2018-08-04] MEDS: PANTOPRAZOLE SODIUM 40 MG/VIAL IV SCH (08:08)
[2018-08-04 08:19] LABS: HEMATOCRIT. 22.7 % (36.0-48.0); HEMOGLOBIN. 7.8 g/dL (12.0-16.0); MEAN CORPUSCULAR HEMOGLOBIN 34.8 pg (28.0-32.0); MEAN CORPUSCULAR VOLUME 100.8 fL (81.0-99.0); MEAN PLATELET VOLUME 9.4 fl (7.4-10.4); PLATELET 54 x1000/uL (130-400); RED BLOOD CELL COUNT 2.25 mill/uL (4.2-5.4); RED CELL DISTRIBUTION WIDTH 22.1 % (11.6-14.6)
[2018-08-04] MEDS ORDERED: LORAZEPAM 2MG/ML CPJ IV PRN (08:30)
[2018-08-04] MEDS ORDERED: LABETALOL HCL 20MG/4ML CARPUJECT IV NR (08:30)
[2018-08-04] MEDS ORDERED: DIGOXIN 500MCG/2ML AMP IV NR ×2 (09:00→11:00)
[2018-08-04] MEDS ORDERED: SODIUM CHLORIDE 0.9% 200 ML IV ONE (09:15)
[2018-08-04 09:35] LABS: CHLORIDE 101 mEq/L (98-107)
[2018-08-04 10:07] LABS: NUCLEATED RED BLOOD CELLS 2 /100 WBC
[2018-08-04 10:09] LABS: PLATELET ESTIMATE DECREASED
[2018-08-04] MEDS: CEFTRIAXONE 1 G PREMIX 50 ML IV SCH (10:51)
[2018-08-04 11:48] LABS: HAPTOGLOBIN <31.0 mg/dL (30-200)
[2018-08-04] MEDS ORDERED: KCL 20MEQ/100ML PREMIX 100 ML IV NR (12:00)
[2018-08-04 12:48] LABS: *AMPHETAMINES SCREEN URINE NEGATIVE (NEGATIVE); *BARBITURATES SCREEN URINE NEGATIVE (NEGATIVE); *BENZODIAZEPINES SCREEN URINE NEGATIVE (NEGATIVE); *COCAINE SCREEN URINE NEGATIVE (NEGATIVE)
[2018-08-04 12:49] LABS: CANNABINOID URINE SCREEN NEGATIVE (NEGATIVE); METHADONE URINE SCREEN NEGATIVE (NEGATIVE); PHENCYCLIDINE URINE SCREEN NEGATIVE (NEGATIVE)
[2018-08-04 12:51] LABS: OPIATES URINE SCREEN PRESUMTIVE POSITIVE (NEGATIVE)
[2018-08-04] MEDS: CHLORDIAZEPOXIDE 25MG CAPSULE PO SCH ×2 (13:39→21:44)
[2018-08-04] MEDS: LACTULOSE 20G/30ML UDC PO SCH ×2 (13:39→21:44)
[2018-08-04] MEDS ORDERED: DIGOXIN 250MCG TABLET PO SCH (18:00)
[2018-08-05] VITALS (16 sets, daily range): BP systolic 89–113; BP diastolic 46–90
[2018-08-05] MEDS: HYDROCODONE/ACETAMINOPHEN 5/325MG TABLET PO PRN (01:29)
[2018-08-05] MEDS: LACTULOSE 20G/30ML UDC PO SCH ×3 (06:00→20:08)
[2018-08-05] MEDS: CHLORDIAZEPOXIDE 25MG CAPSULE PO SCH ×3 (06:43→20:09)
[2018-08-05 07:02] LABS: MEAN CORPUSCULAR HEMOGLOBIN 35.6 pg (28.0-32.0); MEAN CORPUSCULAR VOLUME 100.9 fL (81.0-99.0); MEAN PLATELET VOLUME 9.9 fl (7.4-10.4); PLATELET 59 x1000/uL (130-400); RED CELL DISTRIBUTION WIDTH 21.2 % (11.6-14.6)
[2018-08-05 07:43] LABS: HEMATOCRIT. 18.2 % (36.0-48.0); HEMOGLOBIN. 6.4 g/dL (12.0-16.0)
[2018-08-05] MEDS ORDERED: KCL 10MEQ/50ML PREMIX 50 ML IV ONE ×3 (09:00→11:30)
[2018-08-05] MEDS: FUROSEMIDE 40MG/4ML VIAL IVP SCH (09:00)
[2018-08-05] MEDS: PANTOPRAZOLE SODIUM 40 MG/VIAL IV SCH (09:59)
[2018-08-05] MEDS ORDERED: POTASSIUM CHLORIDE INJ 30 MEQ in SODIUM CHLORIDE 0.9% 500 ML IV SCH (11:00)
[2018-08-05 12:24] LABS: PLATELET ESTIMATE DECREASED
[2018-08-05] MEDS ORDERED: SIMETHICONE 40 MG/0.6 ML 30ML ONE (13:31)
[2018-08-05] MEDS ORDERED: MIDAZOLAM HCL 5 MG/5 ML VIAL ONE (13:44)
[2018-08-05] MEDS ORDERED: FENTANYL CITRATE/PF 50MCG/ML 2ML VIAL ONE (13:45)
[2018-08-05] MEDS ORDERED: SODIUM CHLORIDE 0.9% 10ML VIAL ONE (13:47)
[2018-08-05] MEDS ORDERED: MIDAZOLAM HCL 2 MG/2 ML VIAL IV PRN (13:48)
[2018-08-05] MEDS ORDERED: FENTANYL CITRATE/PF 50MCG/ML 2ML VIAL IV PRN (13:49)
[2018-08-05] MEDS ORDERED: DIATR MEGLU/DIATRIZOATE SOLN 30ML PO SCH (15:30)
[2018-08-05] MEDS: CEFTRIAXONE 1 G PREMIX 50 ML IV SCH (15:35)
[2018-08-05] MEDS ORDERED: DIGOXIN 250MCG TABLET PO SCH (18:00)
[2018-08-05] MEDS ORDERED: IOHEXOL-300 100 ML BOTTLE ONE (19:47)
[2018-08-05 21:57] LABS: HEMATOCRIT 25.4 % (36.0-48.0); HEMOGLOBIN 8.8 g/dL (12.0-16.0)
[2018-08-06] VITALS: BP 101/61
[2018-08-06 02:00] VITALS: BP 104/61
[2018-08-06 04:00] VITALS: BP 99/56
[2018-08-06] MEDS: LACTULOSE 20G/30ML UDC PO SCH ×3 (06:00→21:59)
[2018-08-06] MEDS ORDERED: LACTULOSE 20G/30ML UDC PO NR (08:10)
[2018-08-06] MEDS: RIFAXIMIN 550 MG TABLET PO SCH ×2 (10:01→21:59)
[2018-08-06] MEDS: FUROSEMIDE 40MG/4ML VIAL IVP SCH (10:01)
[2018-08-06] MEDS: PANTOPRAZOLE SODIUM 40 MG/VIAL IV SCH (10:02)
[2018-08-06] MEDS: CHLORDIAZEPOXIDE 25MG CAPSULE PO SCH ×3 (10:03→21:59)
[2018-08-06] MEDS: CEFTRIAXONE 1 G PREMIX 50 ML IV SCH ×2 (11:00→11:01)
[2018-08-06 13:27] LABS: HEMATOCRIT. 24.3 % (36.0-48.0); HEMOGLOBIN. 8.5 g/dL (12.0-16.0); MEAN CORPUSCULAR HEMOGLOBIN 33.5 pg (28.0-32.0); MEAN CORPUSCULAR VOLUME 95.4 fL (81.0-99.0); RED BLOOD CELL COUNT 2.55 mill/uL (4.2-5.4); RED CELL DISTRIBUTION WIDTH 22.5 % (11.6-14.6)
[2018-08-06 13:38] LABS: CHLORIDE 106 mEq/L (98-107)
[2018-08-06 14:20] LABS: NUCLEATED RED BLOOD CELLS 4 /100 WBC; PLATELET ESTIMATE DECREASED
[2018-08-06] MEDS: DIGOXIN 125MCG TABLET PO SCH (17:40)
[2018-08-06 20:00] VITALS: BP 106/58
[2018-08-06 22:00] VITALS: BP 111/59
[2018-08-06] MEDS: HYDROCODONE/ACETAMINOPHEN 5/325MG TABLET PO PRN (22:03)
[2018-08-07] VITALS (8 sets, daily range): BP systolic 93–112; BP diastolic 29–70
[2018-08-07] MEDS: CHLORDIAZEPOXIDE 25MG CAPSULE PO SCH ×3 (06:00→21:48)
[2018-08-07 06:34] LABS: HEMATOCRIT. 21.9 % (36.0-48.0); HEMOGLOBIN. 7.6 g/dL (12.0-16.0); MEAN CORPUSCULAR HEMOGLOBIN 33.8 pg (28.0-32.0); MEAN CORPUSCULAR VOLUME 97.3 fL (81.0-99.0); RED BLOOD CELL COUNT 2.25 mill/uL (4.2-5.4); RED CELL DISTRIBUTION WIDTH 22.7 % (11.6-14.6)
[2018-08-07 06:55] LABS: CHLORIDE 105 mEq/L (98-107)
[2018-08-07 09:24] LABS: PLATELET ESTIMATE DECREASED
[2018-08-07] MEDS: RIFAXIMIN 550 MG TABLET PO SCH ×2 (10:29→21:00)
[2018-08-07] MEDS: POTASSIUM CHLORIDE 20MEQ TABLET SR PO SCH (10:29)
[2018-08-07] MEDS: LACTULOSE 20G/30ML UDC PO SCH ×2 (10:30→17:54)
[2018-08-07] MEDS: FUROSEMIDE 40MG/4ML VIAL IVP SCH (10:31)
[2018-08-07] MEDS: PANTOPRAZOLE SODIUM 40 MG/VIAL IV SCH (10:31)
[2018-08-07] MEDS: CEFTRIAXONE 1 G PREMIX 50 ML IV SCH (11:24)
[2018-08-07] MEDS: KCL 20MEQ/100ML PREMIX 100 ML IV SCH ×2 (12:34→15:34)
[2018-08-07] MEDS ORDERED: BISACODYL 10MG SUPP PR PRN (12:45)
[2018-08-07] MEDS: DIGOXIN 125MCG TABLET PO SCH (17:54)
[2018-08-08] VITALS (8 sets, daily range): BP systolic 90–117; BP diastolic 48–71
[2018-08-08 00:13] LABS: HEMATOCRIT 25.7 % (36.0-48.0); HEMOGLOBIN 8.7 g/dL (12.0-16.0)
[2018-08-08] MEDS: LACTULOSE 20G/30ML UDC PO SCH ×5 (05:38→12:00)
[2018-08-08] MEDS: CHLORDIAZEPOXIDE 25MG CAPSULE PO SCH ×4 (05:38→14:00)
[2018-08-08 09:52] LABS: CHLORIDE 107 mEq/L (98-107)
[2018-08-08 10:20] LABS: HEMATOCRIT. 22.3 % (36.0-48.0); HEMOGLOBIN. 7.6 g/dL (12.0-16.0); MEAN CORPUSCULAR HEMOGLOBIN 34.1 pg (28.0-32.0); MEAN CORPUSCULAR VOLUME 99.6 fL (81.0-99.0); RED BLOOD CELL COUNT 2.24 mill/uL (4.2-5.4); RED CELL DISTRIBUTION WIDTH 24.9 % (11.6-14.6)
[2018-08-08] MEDS: RIFAXIMIN 550 MG TABLET PO SCH (10:33)
[2018-08-08] MEDS: CEFTRIAXONE 1 G PREMIX 50 ML IV SCH (10:34)
[2018-08-08] MEDS: FUROSEMIDE 40MG/4ML VIAL IVP SCH (10:34)
[2018-08-08] MEDS: POTASSIUM CHLORIDE 20MEQ TABLET SR PO SCH (10:34)
[2018-08-08] MEDS: PANTOPRAZOLE SODIUM 40 MG/VIAL IV SCH (10:34)
[2018-08-08 10:44] LABS: NUCLEATED RED BLOOD CELLS 1 /100 WBC
== END 2018-08-08 17:40 | disposition home or self-care (01) | DRG 720 ==
LOC: ER 19:07 → 7WST 08-02 01:08 → ENRESERV 08-02 10:09 → 3WST 08-03 16:27
PROVIDERS: ADMIT Internal Medicine; ATTEND Internal Medicine
PROC: 30233N1 Transfusion of Nonautologous Red Blood Cells into Peripheral Vein, Percutaneous Approach (ICD-10-PCS; 2018-08-02)
PROC: 30233L1 Transfusion of Nonautologous Fresh Plasma into Peripheral Vein, Percutaneous Approach (ICD-10-PCS; 2018-08-03)
PROC: 30233K1 Transfusion of Nonautologous Frozen Plasma into Peripheral Vein, Percutaneous Approach (ICD-10-PCS; 2018-08-03)
PROC: 0DJ08ZZ Inspection of Upper Intestinal Tract, Via Natural or Artificial Opening Endoscopic (ICD-10-PCS; principal; 2018-08-05 13:00)
DX: A41.9 Sepsis, unspecified organism (principal); E43 Unspecified severe protein-calorie malnutrition; I50.31 Acute diastolic (congestive) heart failure; D61.818 Other pancytopenia; F10.231 Alcohol dependence with withdrawal delirium; D68.4 Acquired coagulation factor deficiency; I47.1 Supraventricular tachycardia; I85.00 Esophageal varices without bleeding; K76.6 Portal hypertension; I48.92 Unspecified atrial flutter; K70.9 Alcoholic liver disease, unspecified; K52.9 Noninfective gastroenteritis and colitis, unspecified; R60.1 Generalized edema; E87.6 Hypokalemia; D53.9 Nutritional anemia, unspecified; E66.9 Obesity, unspecified; D75.89 Other specified diseases of blood and blood-forming organs; G89.29 Other chronic pain; J45.909 Unspecified asthma, uncomplicated; K70.31 Alcoholic cirrhosis of liver with ascites; K70.40 Alcoholic hepatic failure without coma; I11.0 Hypertensive heart disease with heart failure; Z91.19 Patient's noncompliance with other medical treatment and regimen; Z98.84 Bariatric surgery status; Z68.41 Body mass index [BMI] 40.0-44.9, adult
CPT/HCPCS: 36415; 36430; 71045; 74176; 74177; 76700; 80048; 80076; 80162; 80305; 82105; 82140; 82270; 82607; 82728; 82746; 82784; 83010; 83540; 83550; 83605; 83615; 83880; 84145; 84443; 84484; 84703; 85014; 85018; 85049; 86334; 86850; 86900; 86920; 86927; 93005; 93306; 93970; 96374; 96375; 99291; A4216; C9113; J0696; J1160; J1170; J1940; J1956; J2250; J2270; J2405; J3010; J3480; J3490; J7030; J7040; J7050; J7060; P9016; P9017; P9034; Q9963; Q9967

== ENCOUNTER 2018-08-21 05:59 | Emergency (ER) | payer MEDICAID ==
[~2018-08-21] VITALS: Ht 152.4 cm; Wt 91.2 kg
[~2018-08-21 05:59] MED LIST changes: -POTA10TA11 PO
[2018-08-21] MEDS ORDERED: SODIUM CHLORIDE 0.9% 1,000 ML IV ONE (07:10)
[2018-08-21 07:36] LABS: INR 1.9; PROTHROMBIN TIME 18.5 sec (9.1-11.1)
[2018-08-21 08:32] LABS: HEMATOCRIT. 25.6 % (36.0-48.0); HEMOGLOBIN. 8.6 g/dL (12.0-16.0); MEAN CORPUSCULAR HEMOGLOBIN 34.6 pg (28.0-32.0); MEAN CORPUSCULAR VOLUME 102.6 fL (81.0-99.0); RED BLOOD CELL COUNT 2.49 mill/uL (4.2-5.4)
[2018-08-21 08:54] LABS: PLATELET 56 x1000/uL (130-400)
[2018-08-21 10:39] LABS: CHLORIDE 108 mEq/L (98-107)
[2018-08-21 11:15] VITALS: BP 116/71
== END 2018-08-21 14:16 | disposition home or self-care (01) ==
LOC: ER 05:59
DX: R53.1 Weakness (principal); J45.909 Unspecified asthma, uncomplicated; I50.9 Heart failure, unspecified; Z98.84 Bariatric surgery status; Z79.899 Other long term (current) drug therapy
CPT/HCPCS: 36415; 80053; 82140; 83690; 85025; 85610; 99283; J7030

== ENCOUNTER 2018-09-18 13:48 | Inpatient (IN) | payer MEDICAID ==
[~2018-09-18] VITALS: Ht 152.4 cm; Wt 101.8 kg
[2018-09-18 16:40] LABS: CHLORIDE 102 mEq/L (98-107)
[2018-09-18 16:51] LABS: INR 2.6; PROTHROMBIN TIME 25.6 sec (9.1-11.1)
[2018-09-18 16:55] LABS: B-HCG QUANTITATIVE < 1 mIU/mL (<3)
[2018-09-18] MEDS ORDERED: ONDANSETRON HCL 4MG/2ML INJ IV ONE (18:30)
[2018-09-18] MEDS ORDERED: MORPHINE SULFATE 4 MG/ML CPJ (NOT FOR IM USE) IV ONE (18:30)
[2018-09-18 18:33] LABS: MEAN CORPUSCULAR HEMOGLOBIN 36.5 pg (28.0-32.0); MEAN CORPUSCULAR VOLUME 111.6 fL (81.0-99.0); MEAN PLATELET VOLUME 9.8 fl (7.4-10.4); RED CELL DISTRIBUTION WIDTH 22.4 % (11.6-14.6)
[2018-09-18 18:45] LABS: HEMOGLOBIN. 6.2 g/dL (12.0-16.0); PLATELET 37 x1000/uL (130-400)
[2018-09-18] MEDS ORDERED: DIATR MEGLU/DIATRIZOATE SOLN 30ML ONE (19:12)
[2018-09-18 19:57] LABS: CLARITY URINE TURBID (CLEAR); COLOR URINE ORANGE (YELLOW); KETONES URINE NEGATIVE (NEGATIVE); LEUKOCYTE ESTERASE URINE 2+ (NEGATIVE); NITRITE URINE POSITIVE (NEGATIVE); OCCULT BLOOD URINE 3+ (NEGATIVE); PH URINE 5.5 (4.5-8.0); PROTEIN URINE 2+ (NEGATIVE); SPECIFIC GRAVITY URINE 1.024 (1.005-1.030)
[2018-09-18 20:44] LABS: PLATELET ESTIMATE MARKEDLY DECREASED
[2018-09-18] MEDS ORDERED: IOHEXOL-300 100 ML BOTTLE ONE (22:00)
[2018-09-19] VITALS (25 sets, daily range): BP systolic 99–138; BP diastolic 60–89
[2018-09-19] MEDS ORDERED: FENTANYL CITRATE/PF 50MCG/ML 2ML VIAL IV NR (01:30)
[2018-09-19] MEDS ORDERED: BISACODYL 5MG TABLET PO PRN (04:15)
[2018-09-19] MEDS ORDERED: PANTOPRAZOLE SODIUM 40 MG/VIAL IV NR (04:15)
[2018-09-19] MEDS ORDERED: MAGNESIUM/ALUMINUM HYDROXIDE/SIMETHICONE 30ML UDC PO PRN (04:15)
[2018-09-19 04:27] LABS: BASOPHILS % 1.8 % (0.0-2.0); EOSINOPHILS % 0.6 % (0.0-5.0); LYMPHOCYTES % 24.5 % (20.0-50.0); MEAN CORPUSCULAR VOLUME 103.7 fL (81.0-99.0); MEAN PLATELET VOLUME 8.1 fl (7.4-10.4); MONOCYTES % 14.2 % (2.0-8.0); NEUTROPHILS % 58.9 % (40.0-76.0); RED BLOOD CELL COUNT 1.74 mill/uL (4.2-5.4); RED CELL DISTRIBUTION WIDTH 25.9 % (11.6-14.6)
[2018-09-19 04:32] LABS: CHLORIDE 103 mEq/L (98-107)
[2018-09-19 04:33] LABS: HEMOGLOBIN. 6.1 g/dL (12.0-16.0)
[2018-09-19 04:34] LABS: PLATELET 45 x1000/uL (130-400)
[2018-09-19] MEDS: SIMETHICONE 80MG TABLET CHEW PO PRN ×3 (05:36→21:27)
[2018-09-19] MEDS: HYDROMORPHONE HCL/PF 2MG/ML CPJ IV PRN ×3 (06:27→21:29)
[2018-09-19] MEDS ORDERED: DIGOXIN 250MCG TABLET PO SCH (12:00)
[2018-09-19] MEDS: METOPROLOL TARTRATE 25MG TABLET PO SCH ×2 (13:46→21:28)
[2018-09-19] MEDS ORDERED: RIFA550T MT (13:50)
[2018-09-19] MEDS: MAGNESIUM/ALUMINUM HYDROXIDE/SIMETHICONE 30ML UDC PO PRN (13:53)
[2018-09-19] MEDS: CEFTRIAXONE 1,000 MG in DEXTROSE 5% WATER 50 ML IV SCH (15:33)
[2018-09-19 16:47] LABS: HEMATOCRIT 22.9 % (36.0-48.0); HEMOGLOBIN 8.1 g/dL (12.0-16.0); MEAN CORPUSCULAR HEMOGLOBIN 34.3 pg (28.0-32.0); MEAN CORPUSCULAR VOLUME 97.2 fL (81.0-99.0); RED BLOOD CELL COUNT 2.35 mill/uL (4.2-5.4)
[2018-09-19 17:05] LABS: PLATELET 40 x1000/uL (130-400)
[2018-09-19 17:16] LABS: FOLIC ACID (FOLATE) SERUM 13.2 ng/mL (>5.38)
[2018-09-19] MEDS: LACTULOSE 20G/30ML UDC PO SCH (21:38)
[2018-09-19] MEDS: ONDANSETRON HCL 4MG/2ML INJ IV PRN (23:41)
[2018-09-20] VITALS (11 sets, daily range): BP systolic 20–122; BP diastolic 52–88
[2018-09-20] MEDS: LACTULOSE 20G/30ML UDC PO SCH ×3 (06:19→22:08)
[2018-09-20] MEDS: SIMETHICONE 80MG TABLET CHEW PO PRN (06:45)
[2018-09-20 06:51] LABS: HEMATOCRIT. 23.9 % (36.0-48.0); HEMOGLOBIN. 8.3 g/dL (12.0-16.0); MEAN CORPUSCULAR HEMOGLOBIN 33.8 pg (28.0-32.0); MEAN CORPUSCULAR VOLUME 97.7 fL (81.0-99.0); MEAN PLATELET VOLUME 8.9 fl (7.4-10.4); RED BLOOD CELL COUNT 2.45 mill/uL (4.2-5.4); RED CELL DISTRIBUTION WIDTH 24.4 % (11.6-14.6)
[2018-09-20 07:04] LABS: CHLORIDE 99 mEq/L (98-107)
[2018-09-20 07:31] LABS: AMYLASE 26 IU/L (25-115)
[2018-09-20 07:42] LABS: PLATELET 38 x1000/uL (130-400)
[2018-09-20] MEDS: METOPROLOL TARTRATE 25MG TABLET PO SCH ×2 (08:19→22:08)
[2018-09-20] MEDS: CEFTRIAXONE 1,000 MG in DEXTROSE 5% WATER 50 ML IV SCH (11:15)
[2018-09-20 16:05] LABS: PLATELET ESTIMATE MARKEDLY DECREASED
[2018-09-20] MEDS: ONDANSETRON HCL 4MG/2ML INJ IV PRN (17:28)
[2018-09-20] MEDS: HYDROMORPHONE HCL/PF 2MG/ML CPJ IV PRN (17:29)
[2018-09-21] VITALS (15 sets, daily range): BP systolic 89–105; BP diastolic 45–74
[2018-09-21] MEDS: HYDROMORPHONE HCL/PF 2MG/ML CPJ IV PRN ×2 (06:26→21:53)
[2018-09-21] MEDS: ONDANSETRON HCL 4MG/2ML INJ IV PRN ×2 (06:27→21:52)
[2018-09-21] MEDS: LACTULOSE 20G/30ML UDC PO SCH ×3 (06:27→21:52)
[2018-09-21 07:25] LABS: MEAN CORPUSCULAR HEMOGLOBIN 33.9 pg (28.0-32.0); MEAN CORPUSCULAR VOLUME 99.7 fL (81.0-99.0); RED BLOOD CELL COUNT 1.99 mill/uL (4.2-5.4); RED CELL DISTRIBUTION WIDTH 24.5 % (11.6-14.6)
[2018-09-21] MEDS: METOPROLOL TARTRATE 25MG TABLET PO SCH ×2 (08:27→21:00)
[2018-09-21 09:40] LABS: HEMATOCRIT. 19.9 % (36.0-48.0); HEMOGLOBIN. 6.8 g/dL (12.0-16.0)
[2018-09-21 09:41] LABS: PLATELET 32 x1000/uL (130-400)
[2018-09-21 09:52] LABS: CHLORIDE 100 mEq/L (98-107)
[2018-09-21] MEDS: CEFTRIAXONE 1,000 MG in DEXTROSE 5% WATER 50 ML IV SCH (11:34)
[2018-09-21] MEDS ORDERED: PHYTONADIONE 10MG/ML AMP SUBCUT NR (16:24)
[2018-09-21 17:07] LABS: INR 2.4; PROTHROMBIN TIME 23.9 sec (9.1-11.1)
[2018-09-21 17:34] LABS: NUCLEATED RED BLOOD CELLS 1 /100 WBC; PLATELET ESTIMATE MARKEDLY DECREASED
[2018-09-21] MEDS: MAGNESIUM/ALUMINUM HYDROXIDE/SIMETHICONE 30ML UDC PO PRN (21:52)
[2018-09-22] VITALS (9 sets, daily range): BP systolic 89–106; BP diastolic 43–70
[2018-09-22] MEDS: LACTULOSE 20G/30ML UDC PO SCH (06:06)
[2018-09-22 06:50] LABS: HEMATOCRIT. 22.4 % (36.0-48.0); HEMOGLOBIN. 7.7 g/dL (12.0-16.0); MEAN CORPUSCULAR HEMOGLOBIN 34.3 pg (28.0-32.0); MEAN CORPUSCULAR VOLUME 100.3 fL (81.0-99.0); MEAN PLATELET VOLUME 9.9 fl (7.4-10.4); RED BLOOD CELL COUNT 2.24 mill/uL (4.2-5.4); RED CELL DISTRIBUTION WIDTH 23.7 % (11.6-14.6)
[2018-09-22 06:52] LABS: INR 2.5; PROTHROMBIN TIME 24.8 sec (9.1-11.1)
[2018-09-22 07:24] LABS: CHLORIDE 99 mEq/L (98-107)
[2018-09-22] MEDS: METOPROLOL TARTRATE 25MG TABLET PO SCH (08:52)
[2018-09-22 09:30] LABS: PLATELET 35 x1000/uL (130-400)
[2018-09-22] MEDS ORDERED: PHYTONADIONE 10MG/ML AMP SUBCUT NR ×2 (10:15→11:45)
[2018-09-22] MEDS ORDERED: POTASSIUM CHLORIDE 20MEQ TABLET SR PO NR (10:15)
[2018-09-22] MEDS: ONDANSETRON HCL 4MG/2ML INJ IV PRN (11:02)
[2018-09-22] MEDS: HYDROMORPHONE HCL/PF 2MG/ML CPJ IV PRN (11:04)
[2018-09-22] MEDS: CEFTRIAXONE 1,000 MG in DEXTROSE 5% WATER 50 ML IV SCH (11:09)
[2018-09-22 16:38] LABS: PLATELET ESTIMATE MARKEDLY DECREASED
== END 2018-09-22 17:25 | disposition home or self-care (01) | DRG 463 ==
LOC: ER 13:48 → 3WST 19:14 → EDBEDREQSVC 09-19 02:28 → ENRESERV 09-19 03:42
PROVIDERS: ADMIT Internal Medicine; ATTEND Internal Medicine
PROC: 30233N1 Transfusion of Nonautologous Red Blood Cells into Peripheral Vein, Percutaneous Approach (ICD-10-PCS; 2018-09-18)
PROC: 30233R1 Transfusion of Nonautologous Platelets into Peripheral Vein, Percutaneous Approach (ICD-10-PCS; 2018-09-18)
PROC: 30233K1 Transfusion of Nonautologous Frozen Plasma into Peripheral Vein, Percutaneous Approach (ICD-10-PCS; principal; 2018-09-19)
DX: N39.0 Urinary tract infection, site not specified (principal); E43 Unspecified severe protein-calorie malnutrition; D61.818 Other pancytopenia; K68.12 Psoas muscle abscess; D68.4 Acquired coagulation factor deficiency; I13.0 Hypertensive heart and chronic kidney disease with heart failure and stage 1 through stage 4 chronic kidney disease, or unspecified chronic kidney disease; I47.1 Supraventricular tachycardia; K76.6 Portal hypertension; K72.90 Hepatic failure, unspecified without coma; K80.10 Calculus of gallbladder with chronic cholecystitis without obstruction; K52.9 Noninfective gastroenteritis and colitis, unspecified; D53.9 Nutritional anemia, unspecified; K21.9 Gastro-esophageal reflux disease without esophagitis; I48.92 Unspecified atrial flutter; E66.9 Obesity, unspecified; I50.30 Unspecified diastolic (congestive) heart failure; N18.9 Chronic kidney disease, unspecified; Z98.84 Bariatric surgery status; T14.8XXA Other injury of unspecified body region, initial encounter; X58.XXXA Exposure to other specified factors, initial encounter; D25.9 Leiomyoma of uterus, unspecified; F10.20 Alcohol dependence, uncomplicated; J45.909 Unspecified asthma, uncomplicated; K70.31 Alcoholic cirrhosis of liver with ascites; N93.8 Other specified abnormal uterine and vaginal bleeding; Z82.49 Family history of ischemic heart disease and other diseases of the circulatory system; Y93.89 Activity, other specified; Y92.89 Other specified places as the place of occurrence of the external cause; Y99.8 Other external cause status
CPT/HCPCS: 36415; 74177; 76700; 76830; 76856; 78227; 80048; 80076; 82140; 82150; 82607; 82746; 83540; 83550; 84443; 84702; 85027; 86304; 86850; 86870; 86900; 86920; 86927; 93005; 93306; 96374; 96375; 99291; A9537; C9113; J0696; J1170; J2270; J2405; J3010; J3430; J7050; J7060; J7070; P9016; P9017; P9034; Q9963; Q9967

== ENCOUNTER 2018-10-03 10:12 | Inpatient (IN) | payer MEDICAID ==
[~2018-10-03] VITALS: Ht 167.6 cm; Wt 103.9 kg
[~2018-10-03 10:12] MED LIST changes: +RIFA550T MT
[2018-10-03] MEDS ORDERED: ONDANSETRON HCL 4MG/2ML INJ IV STA (15:34)
[2018-10-03] MEDS ORDERED: MORPHINE SULFATE 4 MG/ML CPJ (NOT FOR IM USE) IV STA (15:34)
[2018-10-03] MEDS ORDERED: FAMOTIDINE 20MG/2ML VIAL IV STA (15:34)
[2018-10-03 16:30] LABS: EOSINOPHILS % 0.2 % (0.0-5.0); LYMPHOCYTES % 19.4 % (20.0-50.0); MEAN CORPUSCULAR HEMOGLOBIN 35.5 pg (28.0-32.0); MEAN CORPUSCULAR VOLUME 107.7 fL (81.0-99.0); MEAN PLATELET VOLUME 10.8 fl (7.4-10.4); MONOCYTES % 10.5 % (2.0-8.0); NEUTROPHILS % 67.9 % (40.0-76.0); RED BLOOD CELL COUNT 1.63 mill/uL (4.2-5.4); RED CELL DISTRIBUTION WIDTH 22.8 % (11.6-14.6)
[2018-10-03 16:36] LABS: CHLORIDE 101 mEq/L (98-107)
[2018-10-03 16:40] LABS: ETHANOL BLOOD 69 mg/dL
[2018-10-03 16:42] LABS: HEMOGLOBIN. 5.8 g/dL (12.0-16.0)
[2018-10-03 16:43] LABS: HEMATOCRIT. 17.5 % (36.0-48.0); PLATELET 22 x1000/uL (130-400)
[2018-10-03 16:47] LABS: HCG SCREEN NEGATIVE
[2018-10-03 17:28] LABS: PLATELET ESTIMATE MARKEDLY DECREASED
[2018-10-03] MEDS ORDERED: LACTULOSE 20G/30ML UDC PO PRN (18:30)
[2018-10-03] MEDS ORDERED: ONDANSETRON HCL 4MG/2ML INJ IV PRN (18:30)
[2018-10-03 18:34] LABS: INR > 10.0
[2018-10-03 18:35] LABS: PROTHROMBIN TIME > 100.0 sec (9.1-11.1)
[2018-10-03 22:06] LABS: CLARITY URINE CLOUDY (CLEAR); COLOR URINE ORANGE (YELLOW); KETONES URINE NEGATIVE (NEGATIVE); LEUKOCYTE ESTERASE URINE 1+ (NEGATIVE); NITRITE URINE POSITIVE (NEGATIVE); OCCULT BLOOD URINE 1+ (NEGATIVE); PH URINE 5.5 (4.5-8.0); PROTEIN URINE TRACE (NEGATIVE); SPECIFIC GRAVITY URINE 1.022 (1.005-1.030)
[2018-10-03 22:35] LABS: *AMPHETAMINES SCREEN URINE NEGATIVE (NEGATIVE); *BARBITURATES SCREEN URINE NEGATIVE (NEGATIVE); *BENZODIAZEPINES SCREEN URINE NEGATIVE (NEGATIVE); *COCAINE SCREEN URINE NEGATIVE (NEGATIVE); METHADONE URINE SCREEN NEGATIVE (NEGATIVE)
[2018-10-03 22:36] LABS: CANNABINOID URINE SCREEN NEGATIVE (NEGATIVE); PHENCYCLIDINE URINE SCREEN NEGATIVE (NEGATIVE)
[2018-10-03 22:57] LABS: OPIATES URINE SCREEN PRESUMTIVE POSITIVE (NEGATIVE)
[2018-10-04] VITALS (16 sets, daily range): BP systolic 2–119; BP diastolic 53–69
[2018-10-04] MEDS ORDERED: FOLIC ACID 1 MG, MVI, ADULT NO.1 10 ML in DEXTROSE 5% WATER 1,000 ML IV SCH ×3 (05:00)
[2018-10-04] MEDS ORDERED: PANTOPRAZOLE SODIUM 40 MG/VIAL IV SCH (09:00)
[2018-10-04] MEDS: THIAMINE HCL 100MG TABLET PO SCH (09:31)
[2018-10-04] MEDS: DOCUSATE SODIUM 250MG CAPSULE PO SCH (09:32)
[2018-10-04] MEDS: FOLIC ACID 1 MG, MVI, ADULT NO.1 10 ML in DEXTROSE 5% WATER 1,000 ML IV SCH ×3 (09:50)
[2018-10-04 09:59] LABS: BASOPHILS % 1.5 % (0.0-2.0); EOSINOPHILS % 0.3 % (0.0-5.0); HEMATOCRIT. 21.5 % (36.0-48.0); HEMOGLOBIN. 7.3 g/dL (12.0-16.0); LYMPHOCYTES % 20.4 % (20.0-50.0); MEAN CORPUSCULAR HEMOGLOBIN 34.1 pg (28.0-32.0); MEAN CORPUSCULAR VOLUME 99.9 fL (81.0-99.0); MEAN PLATELET VOLUME 9.8 fl (7.4-10.4); MONOCYTES % 14.9 % (2.0-8.0); NEUTROPHILS % 62.9 % (40.0-76.0); RED BLOOD CELL COUNT 2.15 mill/uL (4.2-5.4); RED CELL DISTRIBUTION WIDTH 23.7 % (11.6-14.6)
[2018-10-04 10:05] LABS: CHLORIDE 103 mEq/L (98-107)
[2018-10-04 10:12] LABS: PLATELET 26 x1000/uL (130-400)
[2018-10-04] MEDS: HYDROCODONE/ACETAMINOPHEN 5/325MG TABLET PO PRN (11:57)
[2018-10-04] MEDS ORDERED: LACTULOSE 20G/30ML UDC PO PRN (12:30)
[2018-10-04] MEDS: IPRATROPIUM/ALBUTEROL 0.5-3(2.5)MG/3ML NEB HHN SCH ×3 (12:33→22:28)
[2018-10-04] MEDS: FUROSEMIDE 40MG TABLET PO SCH ×2 (13:12→21:31)
[2018-10-04] MEDS: RIFAXIMIN 550 MG TABLET PO SCH ×2 (13:12→21:30)
[2018-10-04 13:45] LABS: D-DIMER 6.95 mg/L FEU (<0.50)
[2018-10-04 15:07] LABS: FIBRINOGEN < 40 mg/dL (200-400)
[2018-10-04] MEDS: CHLORDIAZEPOXIDE 25MG CAPSULE PO SCH ×2 (16:31→21:31)
[2018-10-04] MEDS: PHYTONADIONE 10MG/ML AMP SUBCUT SCH (16:31)
[2018-10-04] MEDS: PANTOPRAZOLE SODIUM 40 MG/VIAL IV SCH (18:35)
[2018-10-04] MEDS: DEXTROSE 5% WATER 1,000 ML IV SCH (19:00)
[2018-10-04 23:06] LABS: HEMATOCRIT 24.4 % (36.0-48.0); HEMOGLOBIN 8.3 g/dL (12.0-16.0)
[2018-10-05] VITALS (56 sets, daily range): BP systolic 64–101; BP diastolic 38–66
[2018-10-05 01:01] LABS: HEMATOCRIT 22.5 % (36.0-48.0); HEMOGLOBIN 7.7 g/dL (12.0-16.0)
[2018-10-05] MEDS: HYDROCODONE/ACETAMINOPHEN 5/325MG TABLET PO PRN (02:38)
[2018-10-05] MEDS: DEXTROSE 5% WATER 1,000 ML IV SCH (05:00)
[2018-10-05] MEDS: IPRATROPIUM/ALBUTEROL 0.5-3(2.5)MG/3ML NEB HHN SCH ×5 (05:33→21:11)
[2018-10-05] MEDS: CHLORDIAZEPOXIDE 25MG CAPSULE PO SCH ×3 (06:12→22:05)
[2018-10-05] MEDS: PANTOPRAZOLE SODIUM 40 MG/VIAL IV SCH ×2 (06:13→18:26)
[2018-10-05 07:51] LABS: BASOPHILS % 1.3 % (0.0-2.0); EOSINOPHILS % 0.7 % (0.0-5.0); HEMATOCRIT. 21.1 % (36.0-48.0); HEMOGLOBIN. 7.3 g/dL (12.0-16.0); LYMPHOCYTES % 26.4 % (20.0-50.0); MEAN CORPUSCULAR HEMOGLOBIN 33.6 pg (28.0-32.0); MEAN PLATELET VOLUME 10.2 fl (7.4-10.4); MONOCYTES % 14.6 % (2.0-8.0); RED BLOOD CELL COUNT 2.16 mill/uL (4.2-5.4); RED CELL DISTRIBUTION WIDTH 23.4 % (11.6-14.6)
[2018-10-05 08:06] LABS: CHLORIDE 99 mEq/L (98-107)
[2018-10-05 08:14] LABS: INR 2.6; PROTHROMBIN TIME 25.6 sec (9.1-11.1)
[2018-10-05 08:41] LABS: PLATELET 22 x1000/uL (130-400)
[2018-10-05] MEDS: FUROSEMIDE 40MG TABLET PO SCH ×2 (09:00→22:06)
[2018-10-05] MEDS: SPIRONOLACTONE 50MG TABLET PO SCH (09:00)
[2018-10-05] MEDS: THIAMINE HCL 100MG TABLET PO SCH (10:20)
[2018-10-05] MEDS: DOCUSATE SODIUM 250MG CAPSULE PO SCH (10:21)
[2018-10-05] MEDS: RIFAXIMIN 550 MG TABLET PO SCH ×2 (10:21→22:05)
[2018-10-05] MEDS: FOLIC ACID 1 MG, MVI, ADULT NO.1 10 ML in DEXTROSE 5% WATER 1,000 ML IV SCH ×3 (10:36)
[2018-10-05] MEDS: PHYTONADIONE 10MG/ML AMP SUBCUT SCH (11:27)
[2018-10-05] MEDS: MIDODRINE HCL 5MG TABLET PO SCH ×3 (11:50→18:26)
[2018-10-05 12:53] LABS: HEMOGLOBIN 7.1 g/dL (12.0-16.0)
[2018-10-05 12:54] LABS: HEMATOCRIT 20.9 % (36.0-48.0)
[2018-10-05] MEDS ORDERED: POTASSIUM CHLORIDE 20MEQ TABLET SR PO NR (13:30)
[2018-10-05] MEDS: LACTULOSE 20G/30ML UDC PO SCH ×2 (13:41→22:04)
[2018-10-05 18:42] LABS: HEMATOCRIT 20.3 % (36.0-48.0); HEMOGLOBIN 6.9 g/dL (12.0-16.0)
[2018-10-06] VITALS (22 sets, daily range): BP systolic 81–97; BP diastolic 40–61
[2018-10-06] MEDS: IPRATROPIUM/ALBUTEROL 0.5-3(2.5)MG/3ML NEB HHN SCH ×6 (00:18→20:35)
[2018-10-06] MEDS: DEXTROSE 5% WATER 1,000 ML IV SCH ×2 (02:28→11:38)
[2018-10-06] MEDS: LACTULOSE 20G/30ML UDC PO SCH ×3 (06:31→21:59)
[2018-10-06] MEDS: PANTOPRAZOLE SODIUM 40 MG/VIAL IV SCH ×2 (06:31→17:25)
[2018-10-06] MEDS: CHLORDIAZEPOXIDE 25MG CAPSULE PO SCH ×3 (06:31→21:59)
[2018-10-06 07:13] LABS: HEMATOCRIT. 21.1 % (36.0-48.0); HEMOGLOBIN. 7.4 g/dL (12.0-16.0); MEAN CORPUSCULAR HEMOGLOBIN 33.5 pg (28.0-32.0); MEAN CORPUSCULAR VOLUME 95.4 fL (81.0-99.0); MEAN PLATELET VOLUME 9.6 fl (7.4-10.4); RED BLOOD CELL COUNT 2.21 mill/uL (4.2-5.4); RED CELL DISTRIBUTION WIDTH 21.6 % (11.6-14.6)
[2018-10-06 07:33] LABS: INR 3.5; PROTHROMBIN TIME 34.3 sec (9.1-11.1)
[2018-10-06] MEDS: RIFAXIMIN 550 MG TABLET PO SCH ×2 (08:53→21:59)
[2018-10-06] MEDS: DOCUSATE SODIUM 250MG CAPSULE PO SCH (08:55)
[2018-10-06] MEDS: MIDODRINE HCL 5MG TABLET PO SCH ×3 (08:55→17:29)
[2018-10-06] MEDS: THIAMINE HCL 100MG TABLET PO SCH (08:56)
[2018-10-06] MEDS: PHYTONADIONE 10MG/ML AMP SUBCUT SCH (08:56)
[2018-10-06] MEDS: SPIRONOLACTONE 50MG TABLET PO SCH (09:00)
[2018-10-06 11:01] LABS: PLATELET ESTIMATE MARKEDLY DECREASED
[2018-10-06 11:02] LABS: PLATELET 22 x1000/uL (130-400)
[2018-10-06] MEDS: FOLIC ACID 1 MG, MVI, ADULT NO.1 10 ML in DEXTROSE 5% WATER 1,000 ML IV SCH ×3 (11:36)
[2018-10-06] MEDS ORDERED: POTASSIUM CHLORIDE 20MEQ TABLET SR PO NR (12:30)
[2018-10-06] MEDS: FUROSEMIDE 40MG TABLET PO SCH ×2 (13:48→21:00)
[2018-10-06] MEDS ORDERED: CEFTRIAXONE 1 G PREMIX 50 ML IV SCH (14:00)
[2018-10-07] VITALS (12 sets, daily range): BP systolic 82–99; BP diastolic 40–63
[2018-10-07] MEDS: DEXTROSE 5% WATER 1,000 ML IV SCH (01:03)
[2018-10-07] MEDS: IPRATROPIUM/ALBUTEROL 0.5-3(2.5)MG/3ML NEB HHN SCH ×4 (04:00→12:00)
[2018-10-07] MEDS: CHLORDIAZEPOXIDE 25MG CAPSULE PO SCH (05:37)
[2018-10-07] MEDS: PANTOPRAZOLE SODIUM 40 MG/VIAL IV SCH (05:37)
[2018-10-07] MEDS: LACTULOSE 20G/30ML UDC PO SCH (05:37)
[2018-10-07 08:09] LABS: CHLORIDE 99 mEq/L (98-107)
[2018-10-07 08:10] LABS: HEMATOCRIT. 24.9 % (36.0-48.0); HEMOGLOBIN. 8.5 g/dL (12.0-16.0); MEAN CORPUSCULAR HEMOGLOBIN 32.3 pg (28.0-32.0); MEAN CORPUSCULAR VOLUME 94.2 fL (81.0-99.0); MEAN PLATELET VOLUME 9.3 fl (7.4-10.4); RED BLOOD CELL COUNT 2.64 mill/uL (4.2-5.4); RED CELL DISTRIBUTION WIDTH 20.9 % (11.6-14.6)
[2018-10-07 08:22] LABS: PLATELET 22 x1000/uL (130-400)
[2018-10-07] MEDS: FOLIC ACID 1 MG, MVI, ADULT NO.1 10 ML in DEXTROSE 5% WATER 1,000 ML IV SCH ×3 (08:51)
[2018-10-07] MEDS: RIFAXIMIN 550 MG TABLET PO SCH (08:51)
[2018-10-07] MEDS: DOCUSATE SODIUM 250MG CAPSULE PO SCH (08:51)
[2018-10-07] MEDS: MIDODRINE HCL 5MG TABLET PO SCH (08:52)
[2018-10-07] MEDS: FUROSEMIDE 40MG TABLET PO SCH (08:52)
[2018-10-07] MEDS: SPIRONOLACTONE 50MG TABLET PO SCH (08:53)
[2018-10-07] MEDS: THIAMINE HCL 100MG TABLET PO SCH (08:53)
[2018-10-07] MEDS ORDERED: MIDODRINE HCL 5MG TABLET PO SCH (13:00)
[2018-10-07 14:27] LABS: PLATELET ESTIMATE MARKEDLY DECREASED
== END 2018-10-07 13:15 | disposition home health service (06) | DRG 720 ==
LOC: ER 10:43 → 6WST 17:18 → ENRESERV 10-04 00:56 → 3WST 10-04 17:39
PROVIDERS: ADMIT Internal Medicine; ATTEND Internal Medicine
PROC: 30233N1 Transfusion of Nonautologous Red Blood Cells into Peripheral Vein, Percutaneous Approach (ICD-10-PCS; 2018-10-03)
PROC: 30233K1 Transfusion of Nonautologous Frozen Plasma into Peripheral Vein, Percutaneous Approach (ICD-10-PCS; principal; 2018-10-05)
DX: A41.9 Sepsis, unspecified organism (principal); E43 Unspecified severe protein-calorie malnutrition; D61.818 Other pancytopenia; L89.323 Pressure ulcer of left buttock, stage 3; D68.4 Acquired coagulation factor deficiency; I11.0 Hypertensive heart disease with heart failure; I27.20 Pulmonary hypertension, unspecified; I85.10 Secondary esophageal varices without bleeding; K76.6 Portal hypertension; I50.32 Chronic diastolic (congestive) heart failure; K70.30 Alcoholic cirrhosis of liver without ascites; N39.0 Urinary tract infection, site not specified; D53.9 Nutritional anemia, unspecified; K52.9 Noninfective gastroenteritis and colitis, unspecified; J45.909 Unspecified asthma, uncomplicated; K80.20 Calculus of gallbladder without cholecystitis without obstruction; E66.9 Obesity, unspecified; K72.90 Hepatic failure, unspecified without coma; F10.239 Alcohol dependence with withdrawal, unspecified; K59.00 Constipation, unspecified; K70.31 Alcoholic cirrhosis of liver with ascites; K76.0 Fatty (change of) liver, not elsewhere classified; Z98.84 Bariatric surgery status; Z68.37 Body mass index [BMI] 37.0-37.9, adult; R10.9 Unspecified abdominal pain
CPT/HCPCS: 36415; 71045; 74176; 80048; 80076; 80305; 82140; 83880; 84134; 84484; 84703; 85014; 85018; 85044; 85379; 85384; 86850; 86900; 86920; 86927; 94640; 96374; 96375; 97163; 97166; 99285; C9113; J0696; J2270; J2405; J3430; J3490; J7040; J7050; J7070; J7620; P9016; P9017

== ENCOUNTER 2018-10-09 17:20 | Inpatient (IN) | payer MEDICAID ==
[~2018-10-09] VITALS: Ht 165.1 cm; Wt 98.0 kg
[2018-10-09] MEDS ORDERED: SODIUM CHLORIDE 0.9% 1,000 ML IV ONE (17:31)
[2018-10-09 17:52] LABS: BG BASE EXCESS 1.7 mmol/L (-2.0-2.0); BG CARBOXYHEMOGLOBIN 2.3 % (0.5-1.5); BG FRACTION INSPIRED OXYGEN 21; BG HCO3 ACT 26.1 mmol/L (22.0-26.0); BG METHEMOGLOBIN 0.1 % (0.0-1.5); BG OXYGEN SATURATION 95.9 % (92.0-98.5); BG OXYHEMOGLOBIN 93.6 % (94.0-97.0); BG PCO2 39.9 mmHg (35.0-45.0); BG PH 7.433 (7.350-7.450); BG PO2 83.4 mmHg (75.0-100.0); BG SAMPLE SITE RIGHT RADIAL; BG TOTAL HEMOGLOBIN 9.3 g/dL (12.0-18.0); BG VENT MODE ROOM AIR
[2018-10-09] MEDS ORDERED: DEXTROSE 50% WATER 50ML SYRINGE IV ONE ×2 (18:15→18:30)
[2018-10-09 18:55] LABS: CHLORIDE 96 mEq/L (98-107)
[2018-10-09 18:56] LABS: MEAN CORPUSCULAR HEMOGLOBIN 33.2 pg (28.0-32.0); MEAN CORPUSCULAR VOLUME 95.2 fL (81.0-99.0); RED BLOOD CELL COUNT 3.01 mill/uL (4.2-5.4); RED CELL DISTRIBUTION WIDTH 19.8 % (11.6-14.6)
[2018-10-09 18:59] LABS: ETHANOL BLOOD < 10 mg/dL
[2018-10-09 19:00] LABS: HEMATOCRIT. 28.7 % (36.0-48.0)
[2018-10-09 19:04] LABS: HCG SCREEN NEGATIVE
[2018-10-09 19:08] LABS: INR 3.1; PARTIAL THROMBOPLASTIN TIME 74.1 sec (23.4-31.0); PROTHROMBIN TIME 30.8 sec (9.1-11.1)
[2018-10-09 20:03] LABS: CLARITY URINE CLOUDY (CLEAR); COLOR URINE DARK YELLOW (YELLOW); KETONES URINE NEGATIVE (NEGATIVE); LEUKOCYTE ESTERASE URINE TRACE (NEGATIVE); NITRITE URINE POSITIVE (NEGATIVE); OCCULT BLOOD URINE TRACE (NEGATIVE); PROTEIN URINE NEGATIVE (NEGATIVE); SPECIFIC GRAVITY URINE 1.013 (1.005-1.030); UROBILINOGEN URINE 0.2 E.U./dL (0.2-1.0)
[2018-10-09 20:26] LABS: *AMPHETAMINES SCREEN URINE NEGATIVE (NEGATIVE); *BARBITURATES SCREEN URINE NEGATIVE (NEGATIVE); *BENZODIAZEPINES SCREEN URINE PRESUMTIVE POSITIVE (NEGATIVE); *COCAINE SCREEN URINE NEGATIVE (NEGATIVE)
[2018-10-09 20:27] LABS: CANNABINOID URINE SCREEN NEGATIVE (NEGATIVE); METHADONE URINE SCREEN NEGATIVE (NEGATIVE); PHENCYCLIDINE URINE SCREEN NEGATIVE (NEGATIVE)
[2018-10-09 20:28] LABS: OPIATES URINE SCREEN PRESUMTIVE POSITIVE (NEGATIVE)
[2018-10-09 20:50] LABS: NUCLEATED RED BLOOD CELLS 2 /100 WBC
[2018-10-09 21:01] LABS: PLATELET ESTIMATE DECREASED
[2018-10-09] MEDS ORDERED: CEFTRIAXONE 1 G PREMIX 50 ML IV ONE (21:30)
[2018-10-09 22:51] VITALS: BP 96/58
[2018-10-10] VITALS (68 sets, daily range): BP systolic 79–123; BP diastolic 42–65
[2018-10-10] MEDS ORDERED: ONDANSETRON HCL 4MG/2ML INJ IV PRN (00:45)
[2018-10-10] MEDS: BLOOD SUGAR DIAGNOSTIC STRIP TEST SCH ×4 (00:45→17:26)
[2018-10-10] MEDS ORDERED: DEXTROSE 50% WATER 50ML SYRINGE IV PRN (00:45)
[2018-10-10] MEDS ORDERED: FOLIC ACID 1 MG, MVI, ADULT NO.1 10 ML in DEXTROSE 5% WATER 1,000 ML IV SCH ×3 (02:00)
[2018-10-10] MEDS: PANTOPRAZOLE SODIUM 40 MG/VIAL IV SCH ×2 (02:43→09:00)
[2018-10-10] MEDS ORDERED: NOREPINEPHRINE 4 MG in DEXT 5% WATER 246 ML IV PRN (05:00)
[2018-10-10] MEDS ORDERED: VANCOMYCIN 750 MG PREMIX 150 ML IV SCH (05:00)
[2018-10-10 05:07] LABS: BG BASE EXCESS 1.8 mmol/L (-2.0-2.0); BG CARBOXYHEMOGLOBIN 2.7 % (0.5-1.5); BG DEOXYHEMOGLOBIN 2.6 % (0.0-5.0); BG FRACTION INSPIRED OXYGEN 21; BG HCO3 ACT 25.3 mmol/L (22.0-26.0); BG OXYGEN SATURATION 97.3 % (92.0-98.5); BG OXYHEMOGLOBIN 94.7 % (94.0-97.0); BG PCO2 34.9 mmHg (35.0-45.0); BG PH 7.479 (7.350-7.450); BG PO2 91.5 mmHg (75.0-100.0); BG SAMPLE SITE LEFT RADIAL; BG TOTAL HEMOGLOBIN 7.9 g/dL (12.0-18.0); BG VENT MODE ROOM AIR
[2018-10-10 05:26] LABS: CHLORIDE 99 mEq/L (98-107)
[2018-10-10 06:00] LABS: HEMATOCRIT. 25.5 % (36.0-48.0); HEMOGLOBIN. 8.6 g/dL (12.0-16.0); MEAN CORPUSCULAR HEMOGLOBIN 32.4 pg (28.0-32.0); MEAN CORPUSCULAR VOLUME 95.5 fL (81.0-99.0); RED BLOOD CELL COUNT 2.67 mill/uL (4.2-5.4); RED CELL DISTRIBUTION WIDTH 20.4 % (11.6-14.6)
[2018-10-10] MEDS ORDERED: LACTULOSE 20G/30ML UDC PO SCH (06:00)
[2018-10-10] MEDS ORDERED: PIPERACILLIN/TAZ 2.25G PREMIX 50 ML IV SCH (06:00)
[2018-10-10] MEDS ORDERED: MAGN200T5 PO (09:23)
[2018-10-10] MEDS: NOREPINEPHRINE 16 MG in DEXT 5% WATER 234 ML IV PRN (10:28)
[2018-10-10] MEDS: DEXT 5%/0.45% NACL 1000ML 1,000 ML IV SCH ×2 (10:30→23:57)
[2018-10-10] MEDS: LACTULOSE 20G/30ML UDC PO SCH ×2 (12:04→17:29)
[2018-10-10 12:49] LABS: PLATELET ESTIMATE MARKEDLY DECREASED
[2018-10-10 12:51] LABS: NUCLEATED RED BLOOD CELLS 4 /100 WBC
[2018-10-10 12:59] LABS: PLATELET 33 x1000/uL (130-400)
[2018-10-10] MEDS: CEFTRIAXONE 1 G PREMIX 50 ML IV SCH (23:45)
[2018-10-11] VITALS (73 sets, daily range): BP systolic 84–122; BP diastolic 48–78
[2018-10-11] MEDS: LACTULOSE 20G/30ML UDC PO SCH ×4 (01:03→18:42)
[2018-10-11] MEDS: DEXT 5%/0.45% NACL 1000ML 1,000 ML IV SCH (03:15)
[2018-10-11 05:42] LABS: HEMATOCRIT. 25.6 % (36.0-48.0); HEMOGLOBIN. 8.9 g/dL (12.0-16.0); MEAN CORPUSCULAR HEMOGLOBIN 33.3 pg (28.0-32.0); MEAN CORPUSCULAR VOLUME 95.9 fL (81.0-99.0); MEAN PLATELET VOLUME 7.7 fl (7.4-10.4); RED BLOOD CELL COUNT 2.67 mill/uL (4.2-5.4); RED CELL DISTRIBUTION WIDTH 21.3 % (11.6-14.6)
[2018-10-11 06:11] LABS: PLATELET 35 x1000/uL (130-400)
[2018-10-11] MEDS: BLOOD SUGAR DIAGNOSTIC STRIP TEST SCH ×4 (06:44→18:42)
[2018-10-11 08:04] LABS: NUCLEATED RED BLOOD CELLS 3 /100 WBC; PLATELET ESTIMATE MARKEDLY DECREASED
[2018-10-11] MEDS: PANTOPRAZOLE SODIUM 40 MG/VIAL IV SCH (09:00)
[2018-10-11] MEDS ORDERED: POTASSIUM CHLORIDE INJ 40 MEQ in DEXT 5% WATER 250 ML IV SCH (09:00)
[2018-10-11] MEDS: RIFAXIMIN 550 MG TABLET PO SCH ×2 (14:10→21:19)
[2018-10-11] MEDS: NOREPINEPHRINE 16 MG in DEXT 5% WATER 234 ML IV PRN (18:43)
[2018-10-11] MEDS: CEFTRIAXONE 1 G PREMIX 50 ML IV SCH (22:36)
[2018-10-12] VITALS (45 sets, daily range): BP systolic 90–138; BP diastolic 51–75
[2018-10-12] MEDS: LACTULOSE 20G/30ML UDC PO SCH ×4 (01:29→18:08)
[2018-10-12] MEDS: DEXT 5%/0.45% NACL 1000ML 1,000 ML IV SCH (04:32)
[2018-10-12 05:12] LABS: HEMATOCRIT. 24.8 % (36.0-48.0); HEMOGLOBIN. 8.6 g/dL (12.0-16.0); MEAN CORPUSCULAR HEMOGLOBIN 33.1 pg (28.0-32.0); MEAN CORPUSCULAR VOLUME 95.8 fL (81.0-99.0); RED BLOOD CELL COUNT 2.59 mill/uL (4.2-5.4); RED CELL DISTRIBUTION WIDTH 21.1 % (11.6-14.6)
[2018-10-12 05:41] LABS: PHOSPHORUS 3.1 mg/dL (2.5-4.9)
[2018-10-12] MEDS: BLOOD SUGAR DIAGNOSTIC STRIP TEST SCH ×4 (06:15→17:41)
[2018-10-12 07:24] LABS: NUCLEATED RED BLOOD CELLS 4 /100 WBC; PLATELET ESTIMATE MARKEDLY DECREASED
[2018-10-12 07:26] LABS: PLATELET 32 x1000/uL (130-400)
[2018-10-12] MEDS ORDERED: POTASSIUM CHLORIDE 20MEQ/PACKET PO NR (07:30)
[2018-10-12] MEDS: PANTOPRAZOLE SODIUM 40 MG/VIAL IV SCH (08:46)
[2018-10-12] MEDS: RIFAXIMIN 550 MG TABLET PO SCH ×2 (08:46→21:21)
[2018-10-12] MEDS ORDERED: MAGNESIUM 2 G PREMIX 50 ML IV NR (09:00)
[2018-10-12] MEDS: MIDODRINE HCL 5MG TABLET PO SCH ×2 (12:51→18:08)
[2018-10-12] MEDS: MEROPENEM 500 MG in SODIUM CHLORIDE 0.9% 50 ML IV SCH ×2 (14:31→23:49)
[2018-10-13] VITALS: BP 111/58
== END 2018-10-13 01:05 | disposition short-term general hospital (02) | DRG 720 ==
LOC: ER 17:20 → 3WST 18:59 → EDBEDREQ 19:07 → EDBEDREQTM 19:42 → EDBEDREQ 19:42 → ENRESERV 20:16 → MICUSO 10-10 03:54
PROVIDERS: ADMIT Internal Medicine; ATTEND Internal Medicine
PROC: 05HY33Z Insertion of Infusion Device into Upper Vein, Percutaneous Approach (ICD-10-PCS; principal; 2018-10-10)
PROC: B54MZZA Ultrasonography of Right Upper Extremity Veins, Guidance (ICD-10-PCS; 2018-10-10)
DX: A41.9 Sepsis, unspecified organism (principal); N17.0 Acute kidney failure with tubular necrosis; R65.21 Severe sepsis with septic shock; E43 Unspecified severe protein-calorie malnutrition; G93.41 Metabolic encephalopathy; D61.818 Other pancytopenia; L89.150 Pressure ulcer of sacral region, unstageable; D68.9 Coagulation defect, unspecified; K76.6 Portal hypertension; E83.42 Hypomagnesemia; E16.2 Hypoglycemia, unspecified; F19.10 Other psychoactive substance abuse, uncomplicated; R34 Anuria and oliguria; K72.90 Hepatic failure, unspecified without coma; E87.1 Hypo-osmolality and hyponatremia; K70.30 Alcoholic cirrhosis of liver without ascites; E87.8 Other disorders of electrolyte and fluid balance, not elsewhere classified; F10.10 Alcohol abuse, uncomplicated; J45.909 Unspecified asthma, uncomplicated; I50.32 Chronic diastolic (congestive) heart failure; N39.0 Urinary tract infection, site not specified; Z98.84 Bariatric surgery status; Z79.899 Other long term (current) drug therapy; Z78.1 Physical restraint status
CPT/HCPCS: 36415; 36569; 36600; 70551; 71045; 76937; 80048; 80305; 82140; 82375; 82570; 82805; 82962; 83605; 83735; 83880; 84100; 84134; 84145; 84300; 84484; 84703; 85049; 86850; 86900; 87077; 87186; 93005; 93970; 96365; 96375; 99291; C1725; C9113; J0696; J2185; J2543; J3370; J3475; J3480; J3490; J7030; J7040; J7050; J7060; J7070

== ENCOUNTER 2018-12-24 20:52 | Inpatient (IN) | payer MEDICAID ==
[~2018-12-24] VITALS: Ht 157.5 cm; Wt 75.3 kg
[~2018-12-24 20:52] MED LIST changes: -ALLO300T2 MT; -FERR325T6 PO; -FLUN8.9H INH; -FURO80TA87 MT; -LACT10SO PO; -MULT1TAB67 PO; -OMEG-59 MT; -PANT40TA4 PO; -POTA-79 PO; -RIFA550T MT; -SPIR100T5 PO
[2018-12-24] MEDS ORDERED: SODIUM CHLORIDE 0.9% 1,000 ML IV ONE (21:43)
[2018-12-24 21:51] LABS: CLARITY URINE CLEAR (CLEAR); COLOR URINE DARK YELLOW (YELLOW); KETONES URINE NEGATIVE (NEGATIVE); LEUKOCYTE ESTERASE URINE 1+ (NEGATIVE); NITRITE URINE NEGATIVE (NEGATIVE); OCCULT BLOOD URINE TRACE (NEGATIVE); PH URINE 7.5 (4.5-8.0); PROTEIN URINE NEGATIVE (NEGATIVE); SPECIFIC GRAVITY URINE 1.017 (1.005-1.030)
[2018-12-24 22:02] LABS: *AMPHETAMINES SCREEN URINE NEGATIVE (NEGATIVE); *BARBITURATES SCREEN URINE NEGATIVE (NEGATIVE); *BENZODIAZEPINES SCREEN URINE NEGATIVE (NEGATIVE); *COCAINE SCREEN URINE NEGATIVE (NEGATIVE); CANNABINOID URINE SCREEN NEGATIVE (NEGATIVE); METHADONE URINE SCREEN NEGATIVE (NEGATIVE); OPIATES URINE SCREEN NEGATIVE (NEGATIVE); PHENCYCLIDINE URINE SCREEN NEGATIVE (NEGATIVE)
[2018-12-24 23:07] LABS: HEMOGLOBIN. 7.7 g/dL (12.0-16.0); MEAN CORPUSCULAR HEMOGLOBIN 34.5 pg (28.0-32.0); MEAN CORPUSCULAR VOLUME 103.3 fL (81.0-99.0); MEAN PLATELET VOLUME 10.4 fl (7.4-10.4); RED BLOOD CELL COUNT 2.22 mill/uL (4.2-5.4); RED CELL DISTRIBUTION WIDTH 22.6 % (11.6-14.6)
[2018-12-24 23:14] LABS: CHLORIDE 109 mEq/L (98-107)
[2018-12-24 23:18] LABS: ETHANOL BLOOD < 10 mg/dL
[2018-12-24 23:29] LABS: PLATELET 43 x1000/uL (130-400)
[2018-12-24] MEDS ORDERED: CEFTRIAXONE 1 G PREMIX 50 ML IV ONE (23:30)
[2018-12-24 23:45] LABS: INR > 10.0; PROTHROMBIN TIME > 100.0 sec (9.6-11.0)
[2018-12-24 23:46] LABS: PLATELET ESTIMATE MARKEDLY DECREASED
[2018-12-25] VITALS (11 sets, daily range): BP systolic 90–116; BP diastolic 56–74
[2018-12-25] MEDS ORDERED: PHYTONADIONE 10 MG in DEXTROSE 5% WATER 50 ML IV ONE ×2
[2018-12-25] MEDS ORDERED: LACTULOSE 20G/30ML UDC PO ONE (01:45)
[2018-12-25] MEDS: HYDROCODONE/ACETAMINOPHEN 10/325MG TABLET PO PRN ×3 (06:17→22:02)
[2018-12-25] MEDS ORDERED: ONDANSETRON HCL 4MG/2ML INJ IV PRN (08:15)
[2018-12-25] MEDS: DEXT 5%/0.45% NACL 1000ML 1,000 ML IV SCH ×2 (09:00→22:02)
[2018-12-25] MEDS: LACTULOSE 20G/30ML UDC PO SCH ×3 (10:44→21:57)
[2018-12-25] MEDS: RIFAXIMIN 550 MG TABLET PO SCH ×2 (10:44→21:57)
[2018-12-25] MEDS ORDERED: LORAZEPAM 2MG/ML CPJ IV PRN (18:15)
[2018-12-25] MEDS: CHLORDIAZEPOXIDE 25MG CAPSULE PO SCH ×2 (18:34→22:00)
[2018-12-26] VITALS (25 sets, daily range): BP systolic 94–123; BP diastolic 56–81
[2018-12-26] MEDS: CHLORDIAZEPOXIDE 25MG CAPSULE PO SCH ×2 (05:59→12:45)
[2018-12-26] MEDS: LACTULOSE 20G/30ML UDC PO SCH ×3 (06:00→21:47)
[2018-12-26 06:40] LABS: HEMOGLOBIN. 7.5 g/dL (12.0-16.0); MEAN CORPUSCULAR HEMOGLOBIN 34.7 pg (28.0-32.0); MEAN CORPUSCULAR VOLUME 102.2 fL (81.0-99.0); MEAN PLATELET VOLUME 8.8 fl (7.4-10.4); RED BLOOD CELL COUNT 2.15 mill/uL (4.2-5.4); RED CELL DISTRIBUTION WIDTH 22.2 % (11.6-14.6)
[2018-12-26 06:45] LABS: CHLORIDE 109 mEq/L (98-107)
[2018-12-26 07:42] LABS: PLATELET 36 x1000/uL (130-400)
[2018-12-26] MEDS: RIFAXIMIN 550 MG TABLET PO SCH ×2 (08:45→21:47)
[2018-12-26 10:57] LABS: PLATELET ESTIMATE MARKEDLY DECREASED
[2018-12-26] MEDS: DEXT 5%/0.45% NACL 1000ML 1,000 ML IV SCH (12:44)
[2018-12-26 13:50] LABS: PROTHROMBIN TIME > 100.0 sec (9.6-11.0)
[2018-12-26 13:51] LABS: INR > 10.0
[2018-12-26] MEDS ORDERED: PHYTONADIONE 10MG/ML AMP IM SCH (14:00)
[2018-12-26 15:51] LABS: HEMOGLOBIN 6.4 g/dL (12.0-16.0)
[2018-12-26 20:00] LABS: INR 2.1; PROTHROMBIN TIME 20.9 sec (9.6-11.0)
[2018-12-27] VITALS (14 sets, daily range): BP systolic 97–122; BP diastolic 54–71
[2018-12-27 00:01] LABS: INR 2.2; PROTHROMBIN TIME 22.1 sec (9.6-11.0)
[2018-12-27] MEDS: DEXT 5%/0.45% NACL 1000ML 1,000 ML IV SCH (01:19)
[2018-12-27 01:47] LABS: RED BLOOD CELL COUNT 2.01 mill/uL (4.2-5.4)
[2018-12-27 01:48] LABS: HEMATOCRIT 19.8 % (36.0-48.0); HEMOGLOBIN 6.8 g/dL (12.0-16.0); MEAN CORPUSCULAR HEMOGLOBIN 33.7 pg (28.0-32.0); MEAN CORPUSCULAR VOLUME 98.6 fL (81.0-99.0); RED CELL DISTRIBUTION WIDTH 23.6 % (11.6-14.6)
[2018-12-27 01:49] LABS: PLATELET 33 x1000/uL (130-400)
[2018-12-27 06:09] LABS: CHLORIDE 109 mEq/L (98-107)
[2018-12-27 06:26] LABS: HEMATOCRIT. 24.2 % (36.0-48.0); HEMOGLOBIN. 8.1 g/dL (12.0-16.0); MEAN CORPUSCULAR HEMOGLOBIN 32.2 pg (28.0-32.0); MEAN CORPUSCULAR VOLUME 96.2 fL (81.0-99.0); MEAN PLATELET VOLUME 8.8 fl (7.4-10.4); RED BLOOD CELL COUNT 2.51 mill/uL (4.2-5.4); RED CELL DISTRIBUTION WIDTH 24.4 % (11.6-14.6)
[2018-12-27] MEDS: LACTULOSE 20G/30ML UDC PO SCH ×2 (06:48→14:13)
[2018-12-27] MEDS: RIFAXIMIN 550 MG TABLET PO SCH (08:40)
[2018-12-27 09:27] LABS: PLATELET 23 x1000/uL (130-400)
[2018-12-27 11:22] LABS: NUCLEATED RED BLOOD CELLS 1 /100 WBC; PLATELET ESTIMATE MARKEDLY DECREASED
== END 2018-12-27 15:50 | disposition home or self-care (01) | DRG 280 ==
LOC: ER 20:52 → 3WST 12-25 01:40 → EDBEDREQTM 12-25 01:45 → EDBEDREQSVC 12-25 01:45 → EDBEDREQ 12-25 01:45 → EDBEDREQDT 12-25 01:45 → ENRESERV 12-25 05:58 → CANRESERV 12-25 05:58
PROVIDERS: ADMIT Internal Medicine; ATTEND Internal Medicine
PROC: 30233K1 Transfusion of Nonautologous Frozen Plasma into Peripheral Vein, Percutaneous Approach (ICD-10-PCS; principal; 2018-12-25)
PROC: 30233N1 Transfusion of Nonautologous Red Blood Cells into Peripheral Vein, Percutaneous Approach (ICD-10-PCS; 2018-12-26)
DX: K70.40 Alcoholic hepatic failure without coma (principal); K70.30 Alcoholic cirrhosis of liver without ascites; G93.41 Metabolic encephalopathy; E43 Unspecified severe protein-calorie malnutrition; D61.818 Other pancytopenia; Z76.82 Awaiting organ transplant status; D68.9 Coagulation defect, unspecified; E87.8 Other disorders of electrolyte and fluid balance, not elsewhere classified; I27.20 Pulmonary hypertension, unspecified; I50.9 Heart failure, unspecified; E66.9 Obesity, unspecified; K21.9 Gastro-esophageal reflux disease without esophagitis; J45.909 Unspecified asthma, uncomplicated; Z98.84 Bariatric surgery status; Z68.30 Body mass index [BMI] 30.0-30.9, adult
CPT/HCPCS: 36415; 36430; 36556; 76705; 80048; 80076; 80305; 80320; 82140; 82962; 84484; 85014; 85018; 85027; 85384; 86850; 86900; 86920; 86927; 92610; 93005; 93970; 97162; 97530; 99291; J0696; J2060; J3430; J7030; J7050; J7060; P9016; P9017; G0480